=== PATIENT | male | born 1975 | race Caucasian/White ===

== ENCOUNTER 2022-01-17 10:04 | Outpatient (REF) | payer OTHER, SELFPAY ==
[2022-01-17 10:40] LABS: MANUAL DIFF FLAG NO
[2022-01-17 10:45] LABS: Basophils Percent Auto 0.5 % (0-2); Eosinophils Absolute Auto 0.1 X10*3/uL (0.0-0.4); Eosinophils Percent Auto 1.4 % (0-4); Hematocrit 43.7 % (42.0-52.0); Imm Gran Abs Auto 0.06 X10*3/uL (0.00-0.03); Imm Gran Pct Auto 0.7 % (0.0-0.4); Lymphocytes Absolute Auto 2.4 X10*3/uL (1.2-4.9); Lymphocytes Percent Auto 27.6 % (20-40); Mean Corpuscular HGB Conc 34.3 g/dl (31.0-36.0); Mean Corpuscular Hemoglobin 29.4 pg (27.0-33.0); Mean Corpuscular Volume 85.7 fL (80.0-98.0); Mean Platelet Volume 8.5 fL (9.4-12.4); Monocytes Absolute Auto 0.4 X10*3/uL (0.1-1.2); Monocytes Percent Auto 5.1 % (2-11); Neutrophils Absolute Auto 5.6 x10*3/uL (2.0-8.3); Neutrophils Percent Auto 64.7 % (45-73); Platelet Count 255 X10*3/uL (160-400); Red Cell Distribution Width 12.2 % (11.0-16.0); White Blood Count 8.6 X10*3/uL (4.8-10.8)
[2022-01-17 11:23] LABS: Alanine Aminotransferase 40 U/L (0-40); Albumin Level 4.7 g/dL (3.5-5.0); Alkaline Phosphatase 83 U/L (39-117); Anion Gap 13 (12-20); Aspartate Amino Transferase 22 U/L (5-37); Bilirubin Total 0.6 mg/dL (0.0-1.0); Blood Urea Nitrogen 15 mg/dL (9-16); Calcium 10.3 mg/dL (8.4-10.2); Carbon Dioxide 26 mmol/L (22-29); Chloride 103 mmol/L (96-108); Cholesterol 220 mg/dL; Estimated Glomerular Filt Rate > 60; Glucose Fasting 138 mg/dL (60-99); HDL Cholesterol 43 mg/dL; LDL Cholesterol Calculated 149 mg/dl; Potassium 4.2 mmol/L (3.3-5.1); Sodium 138 mmol/L (135-145); Total Protein 7.5 g/dL (6.5-8.0); Triglycerides 143 mg/dL
[2022-01-17 11:27] LABS: Prostate Specific Antigen 3.18 ng/mL (<0.05-4.0)
== END 2022-01-17 10:05 | disposition home or self-care (01) ==
LOC: HO.WFDLDS 10:04
PROVIDERS: Visit Provider Nurse Practitioner Family
DX: Z00.00 Encounter for general adult medical examination without abnormal findings (principal); Z12.5 Encounter for screening for malignant neoplasm of prostate
CPT/HCPCS: 36415; 80053; 80061; 84153; 85025

== ENCOUNTER → 2022-06-28 10:23 | Outpatient (BNVA) | payer OTHER, SELFPAY | PROVIDERS: PCP Nurse Practitioner Family; Visit Provider Urology | DX: R97.20 Elevated prostate specific antigen [PSA] (principal) | CPT/HCPCS: 51798; 99202 ==

== ENCOUNTER 2022-12-30 10:04 | Outpatient (REF) | payer OTHER, SELFPAY ==
[2022-12-30 13:10] LABS: Prostate Specific Antigen 3.36 ng/mL (<0.05-4.0)
== END 2022-12-30 10:05 | disposition home or self-care (01) ==
LOC: HO.WFDLDS 10:04
PROVIDERS: Visit Provider Urology
DX: Z12.5 Encounter for screening for malignant neoplasm of prostate (principal); N40.1 Benign prostatic hyperplasia with lower urinary tract symptoms
CPT/HCPCS: 36415; 84153

== ENCOUNTER 2023-01-06 10:01 | Outpatient (AMB) | payer OTHER, SELFPAY ==
--- NOTE | 2023-01-06 10:02 | MHC.OFFVIS ---
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 Hatfield. He is being followed up on today via video telehealth for his history of lower urinary tract symptoms and elevated PSA. When asked he reports to be doing and feeling well. He discusses noting significant improvement in lower urinary tract symptoms on 5 mg of Cialis and Flomax daily. He reports feeling medications are extremely effective for him when he takes them at HS. He reports to be happy with current voiding parameters on 0.4 mg of Flomax and 5 mg of Cialis daily. Recent PSA results reviewed with the patient today. PSAs are as follows: 02/02--3.2 12/04--3.4. He discusses moving here from [place]. He reports having followed up with a urologist previously in [place]. During last office visit with Dr. Bran approximately 6 months ago VICENTA noted to be soft prostate right side question of inflammation. Discussed at length potential causes for elevated PSA. Discussed obtaining retroperitoneal ultrasound for further assessment evaluation as well as redraw of PSA. He otherwise denies any bothersome urinary issues or concerns at this time. 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 Cognitive needs: No Hearing needs: No Vision needs: No Review of Systems Const All systems reviewed & are unremarkable except as noted in HPI and below Physical Exam Const General: cooperative, healthy appearing, comfortable, no acute distress, well developed, alert and awake Orientation/consciousness: patient oriented x3 Resp Effort & Inspection: normal respiratory effort and able to speak in complete sentences Neuro General: patient oriented x3 Psych Appearance: grossly normal and well kempt Mental Status: mental status grossly normal Speech and movement: Normal speech and movement present and Clear speech present Affect: normal affect Attitude: cooperative Thought process: Normal thought process present Thought content: Normal thought content present Insight: Good insight present (Psych) Judgement: Good judgement present (Psych) Assessment & Plan Assessment & Plan (1) Enlarged prostate with lower urinary tract symptoms (LUTS): Code(s): N40.1 - Benign prostatic hyperplasia with lower urinary tract symptoms (2) Elevated PSA: Code(s): R97.20 - Elevated prostate specific antigen [PSA] Plan Recent PSA results reviewed with the patient today. Continue 5 mg of Cialis daily as well as 0.4 mg of tamsulosin as patient reports significant improvement in lower urinary tract symptoms on these medications. Discussed at length potential causes for elevated PSA. Discussed obtaining redraw of PSA with no sex the night before, no caffeine morning of and no heavy lifting 1-2 days prior to lab draw. Will obtain retroperitoneal ultrasound for further assessment evaluation. Patient denies any bothersome urinary issues or concerns at this time. Follow-up in 1-2 months with labs and imaging to be completed prior; or sooner with any issues, concerns, and or questions. Orders: Orders US retroperitoneal comp Today N40.1 - Benign prostatic hyperplasia with lower urinary tract symptoms PSA,Total (Free>4and<10) Today N40.1 - Benign prostatic hyperplasia with lower urinary tract symptoms Patient Instructions: The patient had an opportunity to ask questions regarding the treatment plan. All questions were answered. Physical exam, labs, and imaging were discussed and reviewed in detail. As well as risks, benefits, and discussion of treatment choices. No major barriers to understanding were identified. The patient expressed understanding and agreement with the above treatment plan. The patient was made aware they should contact our office by phone for worsening of their current condition, the appearance of new symptoms, or with any questions or concerns. Compliance is encouraged with any medications and follow up testing that is ordered. It is a privilege to be allowed the opportunity to participate in? your urological care.? Again, if you have any questions or concerns If you have any questions or concerns please do not hesitate to contact me. The office is [phone]. This note is constructed using voice recognition software. While every effort has been made to ensure accuracy packaging assembler errors may have been included. Yours sincerely, PARAS Smith- Telehealth Telehealth Location of provider rendering services: practice address Location of patient: address on file Patient Identification confirmed using: Name, : Yes Telehealth method: video Patient verbally consented to treatment: Yes Patient verbally consented to billing insurance company: Yes Patient informed of any privacy concerns related to visit: Yes Minutes spent on Phone/Video with Pt.: 35 Coding Level of Care Code Est Pt Level 3 (42667) Diagnoses Enlarged prostate with lower urinary tract symptoms (LUTS) N40.1 Elevated PSA R97.20
== END 2023-01-06 11:52 | disposition home or self-care (01) ==
LOC: HO.HUSH 10:01
PROVIDERS: PCP Nurse Practitioner Family; Visit Provider Nurse Practitioner Family
DX: N40.1 Benign prostatic hyperplasia with lower urinary tract symptoms (principal); R97.20 Elevated prostate specific antigen [PSA]
CPT/HCPCS: 99213

== ENCOUNTER → 2023-01-06 10:01 | Outpatient (BNVA) | payer OTHER, SELFPAY | PROVIDERS: PCP Nurse Practitioner Family; Visit Provider Nurse Practitioner Family | DX: R97.20 Elevated prostate specific antigen [PSA] (principal); N40.1 Benign prostatic hyperplasia with lower urinary tract symptoms | CPT/HCPCS: 99212 ==

== ENCOUNTER 2023-01-10 08:08 | Outpatient (REF) | payer OTHER, SELFPAY | END 2023-01-10 08:09 | disposition home or self-care (01) | LOC: HO.WFDLDS 08:08 | PROVIDERS: Visit Provider Nurse Practitioner Family | DX: Z12.5 Encounter for screening for malignant neoplasm of prostate (principal); N40.1 Benign prostatic hyperplasia with lower urinary tract symptoms | CPT/HCPCS: 36415; 84153 ==

== ENCOUNTER 2023-01-23 12:33 | Outpatient (REF) | payer OTHER, SELFPAY ==
--- NOTE | ~2023-01-23 | US_ITS ---
EXAMINATION: US RETROPERITONEAL COMPLETE (RENAL) CLINICAL INFORMATION: Benign prostatic hyperplasia with lower urinary tract symptoms. COMPARISON: None available. TECHNIQUE: Real-time imaging of the kidneys and bladder. Limited visualization due to bowel gas. FINDINGS: RIGHT KIDNEY: 12.1 x 5.3 x 6.7 cm (SAG x AP x TRV). Upper pole 4.8 cm cyst with benign features. There is no indication for followup imaging. No hydronephrosis. No renal calculi. Renal cortical thickness is normal. Limited visualization. LEFT KIDNEY: 11.6 x 5.1 x 6.4 cm (SAG x AP x TRV). 3.1 cm lower pole cyst, 0.6 cm lower pole cyst and 1.0 cm mid pole cyst demonstrates benign features. There is no indication for followup imaging. No hydronephrosis. No renal calculi. Limited visualization. BLADDER: Well distended. Mild diffuse trabeculation of the bladder wall with borderline thickening. Bilateral ureteral jets are demonstrated. Prevoid bladder volume is 215 mL. Postvoid bladder volume is 7.2 mL. ADDITIONAL FINDINGS: Prostate volume 97.1 mL. US/US retroperitoneal comp IMPRESSION: Mild diffuse trabeculation of the bladder wall with borderline thickening. Prostate volume 97.1 mL.
== END 2023-01-23 12:34 | disposition home or self-care (01) ==
LOC: HO.US 12:33
PROVIDERS: PCP Nurse Practitioner Family; Visit Provider Nurse Practitioner Family
DX: N40.1 Benign prostatic hyperplasia with lower urinary tract symptoms (principal)
CPT/HCPCS: 76770

== ENCOUNTER 2023-02-05 10:40 | Outpatient (AMB) | payer OTHER, SELFPAY ==
--- NOTE | 2023-02-05 10:44 | A.OFFPC_ITS ---
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 by: Self / Same As Patient Allergies No Known Allergies Allergy (Verified 02/05/23 11:22) Medication List - Last Reconciled 02/05/23 by Estefania Hatfield CNP tadalafil 5 mg PO DAILY 90 days tamsulosin 0.4 mg PO BEDTIME 90 days Tobacco use date assessed: 02/05/23 Dental Screening Dental Screen Date: 02/05/23 Did you have a dental visit in the last 12 months?: No Did you have a dental problem in the last 6 months where you did not have access to dental care?: No Was dental information given to patient?: Yes HPI HPI Comments History of Present Illness Details 47-year-old male presents for a complete physical exam. He has medical h/o of enlarged prostate, anxiety, and depression. He admits to taking his medications as prescribed. He is followed by [facility] urology. He notes that he has been experiencing PTSD symptoms since he was kidnapped on the streets of [facility] in February 2022, imprisoned for 46 days, and released. He was never extradited to [place] as initially planned. He visited [facility] to meet his mother who was traveling from [place]. 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 He has been seeing a therapist weekly or every other week, depending on his needs. He finds psychotherapy helpful. He is not currently on a psychotropic medication and does not want medication treatment for his PTSD symtpoms at this time. [facility] Medical History (Updated 02/05/23 @ 10:56 by Sammie Joseph MA) No pertinent past medical history Surgical History (Updated 02/05/23 @ 10:56 by Sammie Joseph MA) Hx of appendectomy Family History Mother Hypertension Diabetes No family history of mental disorder Heart disease Father Heart disease No family history of mental disorder COPD (chronic obstructive pulmonary disease) Social History Household Members: Significant Other Housing: House Alcohol intake: former Patient Tobacco Use Status: Never used Tobacco e-Cigarette/Vaping Use: Currently Using service: No Current occupational status: other 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 1. Little interest or pleasure in doing things: more than half the days 2. Feeling down, depressed, or hopeless: several days 3. Trouble falling or staying asleep, or sleeping too much: more than half the days 4. Feeling tired or having little energy: more than half the days 5. Poor appetite or overeating: not at all 6. Feeling bad about yourself - or that you are a failure or have let yourself or your family down: nearly every day 7. Trouble concentrating on things, such as reading the newspaper or watching television: more than half the days 8. Moving or speaking so slowly that other people could have noticed. Or the opposite - being so fidgety or restless that you have been moving around a lot more than usual: not at all 9. Thoughts that you would be better off or of hurting yourself in some way: not at all Total score: 12 Depression Screening Interpretation: Positive Depression Screening Follow-up: Existing condition and In treatment Depression Screening Done: Yes Source: Developed by Drs. Gokul Diaz, Evon Tucker, Duane Wyatt and colleagues, with an educational akilah from [employer]. AUDIT C Alcohol Use Questionnaire (AUDIT-C) 1. How often do you have a drink containing alcohol?: Monthly or less 2. How many drinks containing alcohol do you have on a typical day when you are drinking?: 1 or 2 3. How often do you have six or more drinks on one occasion?: Never Total Score: 1 CARLENE-7 AMB Questionnaire CARLENE-7 Date CARLENE - 7 assessed: 02/05/23 Feeling nervous, anxious, or on edge: 0 = Not at all Not being able to stop or control worryin = Not at all Worrying too much about different things: 2 = More than half the days Trouble relaxin = Not at all Being so restless that it is hard to sit still: 0 = Not at all Becoming easily annoyed or irritable: 1 = Several days Feeling afraid as if something awful might happen: 1 = Several days Total CARLENE-7 score (0-4 normal; 5-9 mild; 10-14 moderate; 15-21 severe): 4 Source: Developed by Drs. Gokul Diaz, Evon Tucker, Duane Wyatt and colleagues, with an educational akilah from [employer]. Review of Systems Const Details: Denies chills, Denies fatigue, Denies fever(s), Denies headache(s) and Denies weakness HEENT Denies change in vision, Denies dizziness, Denies headache(s), Denies hearing loss, Denies nasal congestion, Denies sinus pain, Denies sinus pressure and Denies sore throat Card Denies chest pain, Denies lightheadedness, Denies dyspnea and Denies other (palpitations) Resp Denies cough, Denies dyspnea and Denies wheezing GI Denies abdominal pain, Denies melena, Denies hematochezia, Denies change in bowel habits, Denies dyspepsia and Denies nausea Denies hematuria and Denies dysuria Musc Denies abnormal gait, Denies myalgias, Denies arthralgias, Denies numbness and Denies tingling Skin/Breast Denies rash, Denies unusual bruising and Denies wounds Neuro Denies abnormal gait, Denies dizziness, Denies headache(s), Denies memory loss, Denies numbness, Denies Sensory deficit (Neuro), Denies tingling and Denies weakness Psych Denies anxiety, Denies depression and Denies memory loss Endo Denies cold intolerance, Denies fatigue, Denies heat intolerance, Denies polydipsia and Denies polyuria Karl/Lymph Denies easy bleeding and Denies easy bruising Aller/Immun Denies wheezing Physical exam (Primary Care) Vital Signs: Last Vital Signs Temp 97.6 F 02/05/23 10:45 Pulse 89 02/05/23 10:45 Resp 13 02/05/23 10:45 BP 128/76 02/05/23 10:45 Pulse Ox 98 02/05/23 10:45 Oxygen Delivery Method Room Air 02/05/23 10:45 BMI result Body Mass Index 35.8 Tobacco/Smoking Status: Tobacco use Status Tobacco use date assessed 02/05/23 02/05/23 10:57 Patient Tobacco Use Status Never used Tobacco 02/05/23 10:57 e-Cigarette/Vaping Use Currently Using 02/05/23 10:45 PHQ-9: PHQ-9 Score PHQ-9: Total score 12 02/05/23 11:46 Depression Screening Interpretation: Positive Depression Screening Follow-up: Existing condition and In treatment Const Other: General: no acute distress, well developed, alert and awake Nutritional Appearance: well nourished Orientation/consciousness: patient oriented x3 HENMT Head: Yes normocephalic and Yes atraumatic Ears: hearing grossly normal bilaterally and TM's normal bilaterally General nose exam: Normal external nose present and Normal nares present Mouth: Normal oral and palatal mucosa present and moist mucous membranes Teeth and gingiva: dentition normal Throat: Yes oropharynx normal Eyes Pupils: Equal, round and reactive pupils present and Pupil accommodation reflex normal EOM: EOMs intact bilaterally Neck Neck: Yes normal visual inspection, Yes no lymphadenopathy and Yes trachea midline Thyroid: Thyroid normal Carotids: no bruits Lymphatic: no lymphadenopathy noted Chest Chest palpation & inspection: normal inspection of the chest Resp Effort & Inspection: normal respiratory effort Auscultation: clear to auscultation bilaterally Cardio Rate: regular rate Rhythm: regular rhythm Heart sounds: S1 normal heart sound present, S2 normal heart sound present, no gallops, no murmurs and no rubs Bruits: no abdominal aortic bruits and no carotid bruits GI Palpation (GI): No Abdominal aortic bruit present, Soft to palpation, nontender, No hepatosplenomegaly present and No Rebound tenderness present Auscultation: normal bowel sounds General: Yes no CVA tenderness Back/Spine/Pelvis Back: no CVA tenderness Cervical Spine: cervical ROM normal and No Cervical spine tenderness Thoracic/Lumbar Spine: thoraco-lumbar ROM normal, No pain with thoraco-lumbar ROM, No thoracic spinal tenderness and No lumbar spinal tenderness Skin General: warm and dry. Normal skin color. Normal skin turgor Lesions: no lesions Rashes: no rashes Trauma: no lacerations or abrasions Wounds: no wounds Nails: normal Neuro General: patient oriented x3, gait normal and CN's II-XI intact bilaterally Cranial nerves: Yes Equal, round and reactive pupils present Cognition (Neuro): normal cognition Gait exam (Neuro): Normal gait present Motor exam (neuro): 5/5 motor strength present throughout Sensory Exam: No Sensory deficit (Neuro) Deep tendon reflexes (DTR's): Right patellar reflex intensity grade: 2+ and Left patellar reflex intensity grade: 2+ Extrem General: Yes normal to inspection, No edema and No calf tenderness Psych Appearance: grossly normal Affect: normal affect Attitude: cooperative Thought process: Normal thought process present Assessment and Plan Assessment & Plan (1) Normal physical examination, routine: Code(s): Z00.00 - Encounter for general adult medical examination without abnormal findings Plan: No significant physical restrictions or limitations noted Routine fasting labs ordered. Advised to get blood work done and schedule a telehealth visit for labs review in 2-3 Continue with current treatment regimen Continue follow-up with urology as planned Follow-up with symptoms or concerns Verbalized understanding and agreed with treatment plan. (2) Anxiety: Code(s): F41.9 - Anxiety disorder, unspecified Plan: CARLENE-7 score is normal. PHQ-9 reveals moderate depression Declines medication treatment at this time Continue with therapy as planned Routine exercise encouraged May contact his PCP if he changes mind on medication treatment Follow-up with worsening or new symptoms Verbalized understanding and agreed with the treatment plan. (3) PTSD (post-traumatic stress disorder): Code(s): F43.10 - Post-traumatic stress disorder, unspecified Plan: As above (4) Impacted cerumen of both ears: Code(s): H61.23 - Impacted cerumen, bilateral Plan: Significant amount of cerumen noted both ear canal occluding the TMs No hearing impairment He noted that he never used to Debrox a was ordered. Advised to use Debrox as prescribed May return for cerumen removal if experiencing ear pain or impaired hearing Verbalized understanding and agreed with treatment plan Orders: Orders Complete Blood Count Auto Diff Today Z00.00 - Encounter for general adult medical examination without abnormal findings Comprehensive Morse. Panel Fast Today Z00.00 - Encounter for general adult medical examination without abnormal findings Lipid Panel Today Z00.00 - Encounter for general adult medical examination without abnormal findings TSH reflex Free T4 Today Z00.00 - Encounter for general adult medical examination without abnormal findings Coding Level of Care Code Est Pt Prev Care 40-64y(88173) Diagnoses Normal physical examination, routine Z00.00 Anxiety F41.9 PTSD (post-traumatic stress disorder) F43.10 Impacted cerumen of both ears H61.23
[2023-02-05 10:45] VITALS: BP 128/76; PULSE 89; RESP 13; TEMP 36.4; O2SAT 98; BMI 35.8
== END 2023-02-05 11:41 | disposition home or self-care (01) ==
PROVIDERS: PCP Nurse Practitioner Family; Visit Provider Nurse Practitioner Family
DX: Z00.00 Encounter for general adult medical examination without abnormal findings (principal); F41.9 Anxiety disorder, unspecified; F43.10 Post-traumatic stress disorder, unspecified; H61.23 Impacted cerumen, bilateral
CPT/HCPCS: 99396

== ENCOUNTER 2023-02-05 11:42 | Outpatient (REF) | payer OTHER, SELFPAY ==
[2023-02-05 14:56] LABS: MANUAL DIFF FLAG NO
[2023-02-05 15:06] LABS: Basophils Percent Auto 0.5 % (0-2); Eosinophils Absolute Auto 0.1 X10*3/uL (0.0-0.4); Eosinophils Percent Auto 1.3 % (0-4); Hematocrit 45.4 % (42.0-52.0); Hemoglobin 15.2 g/dl (14.0-18.0); Imm Gran Abs Auto 0.04 X10*3/uL (0.00-0.03); Imm Gran Pct Auto 0.5 % (0.0-0.4); Lymphocytes Absolute Auto 2.3 X10*3/uL (1.2-4.9); Lymphocytes Percent Auto 27.9 % (20-40); Mean Corpuscular HGB Conc 33.5 g/dl (31.0-36.0); Mean Corpuscular Hemoglobin 29.5 pg (27.0-33.0); Mean Corpuscular Volume 88.2 fL (80.0-98.0); Mean Platelet Volume 9.2 fL (9.4-12.4); Monocytes Absolute Auto 0.4 X10*3/uL (0.1-1.2); Neutrophils Absolute Auto 5.3 x10*3/uL (2.0-8.3); Neutrophils Percent Auto 64.8 % (45-73); Platelet Count 262 X10*3/uL (160-400); Red Blood Count 5.15 X10*6/uL (4.60-5.80); Red Cell Distribution Width 12.2 % (11.0-16.0); White Blood Count 8.2 X10*3/uL (4.8-10.8)
[2023-02-05 15:33] LABS: Alanine Aminotransferase 26 U/L (0-40); Albumin Level 4.6 g/dL (3.5-5.0); Alkaline Phosphatase 74 U/L (39-117); Anion Gap 14 (12-20); Aspartate Amino Transferase 19 U/L (5-37); Bilirubin Total 0.3 mg/dL (0.0-1.0); Blood Urea Nitrogen 15 mg/dL (9-16); Calcium 9.8 mg/dL (8.4-10.2); Carbon Dioxide 25 mmol/L (22-29); Chloride 106 mmol/L (96-108); Cholesterol 190 mg/dL (<200); Estimated Glomerular Filt Rate > 60; Glucose Fasting 117 mg/dL (60-99); HDL Cholesterol 40 mg/dL (>40); LDL Cholesterol Calculated 134 mg/dL (<100); Potassium 4.2 mmol/L (3.3-5.1); Sodium 141 mmol/L (135-145); Total Protein 7.6 g/dL (6.5-8.0); Triglycerides 80 mg/dL (<150)
[2023-02-05 15:52] LABS: TSH reflex Free T4 0.67 uIU/mL (0.32-4.0)
== END 2023-02-05 11:43 | disposition home or self-care (01) ==
LOC: HO.WFDLDS 11:42
PROVIDERS: Visit Provider Nurse Practitioner Family
DX: Z00.00 Encounter for general adult medical examination without abnormal findings (principal)
CPT/HCPCS: 36415; 80053; 80061; 84443; 85025

== ENCOUNTER 2023-02-20 16:10 | Outpatient (AMB) | payer OTHER, SELFPAY ==
--- NOTE | 2023-02-20 15:59 | A.OFFPC_ITS ---
Intake Visit Reasons: f/u labs review Intake Note: Patient is ready for the telehealth appointment, is okay with an earlier call. Allergies No Known Allergies Allergy (Verified 02/05/23 11:22) Tobacco use date assessed: 02/05/23 HPI HPI Comments History of Present Illness Details This is a telephonic telehealth visit for review of recent blood work. He offers no complaints and denies acute symptoms. He notes that he has been seen a psychologist weekly or biweekly for anxiety, depression, and PTSD and does not need medication treatment at this time. [facility] Medical History (Updated 02/20/23 @ 16:18 by Estefania Hatfield CNP) No pertinent past medical history Surgical History (Updated 02/05/23 @ 10:56 by Sammie Joseph MA) Hx of appendectomy Family History Mother Hypertension Diabetes No family history of mental disorder Heart disease Father Heart disease No family history of mental disorder COPD (chronic obstructive pulmonary disease) Social History Household Members: Significant Other Housing: House Alcohol intake: former Patient Tobacco Use Status: Never used Tobacco e-Cigarette/Vaping Use: Currently Using service: No Current occupational status: other 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 Gokul Diaz, Evon Tucker, Duane Wyatt and colleagues, with an educational akilah from [employer]. Review of Systems Const Details: Const Denies chills, Denies fatigue, Denies fever(s), Denies headache(s) and Denies weakness ENT Denies dizziness and Denies headache(s) Card Denies chest pain, Denies lightheadedness, Denies dyspnea and Denies other (Palpitations) Resp Denies cough, Denies dyspnea, Denies wheezing and Denies other ( shortness of breath) GI Denies abdominal pain, Denies melena, Denies hematochezia, Denies change in bowel habits, Denies dyspepsia and Denies nausea Denies hematuria and Denies dysuria Musc Denies abnormal gait, Denies myalgias, Denies arthralgias, Denies numbness and Denies tingling Skin/Breast Denies rash, Denies unusual bruising and Denies wounds Neuro Denies abnormal gait, Denies dizziness, Denies headache(s), Denies memory loss, Denies numbness, Denies Sensory deficit (Neuro), Denies tingling and Denies wea kness Psych Denies anxiety, Denies depression, Denies memory loss Endo Denies cold intolerance, Denies fatigue, Denies heat intolerance, Denies polydi psia and Denies polyuria Aller/Immun Denies wheezing Physical exam (Primary Care) Tobacco/Smoking Status: Tobacco use Status Tobacco use date assessed 02/05/23 02/20/23 16:01 Patient Tobacco Use Status Never used Tobacco 02/20/23 16:01 e-Cigarette/Vaping Use Currently Using 02/20/23 16:01 Const Other: Telephonic telehealth visit. No physical exam Telehealth Telehealth Location of provider rendering services: practice address Location of patient: address on file Patient Identification confirmed using: Name, : Yes Telehealth method: voice only Patient verbally consented to treatment: Yes Patient verbally consented to billing insurance company: Yes Patient informed of any privacy concerns related to visit: Yes Assessment and Plan Assessment & Plan (1) Elevated LDL cholesterol level: Code(s): E78.00 - Pure hypercholesterolemia, unspecified Plan: Recent lab results reviewed with the patient His lipid levels have improved from a year ago. However, recent LDL level is slightly elevated, 134, and HDL level is slightly low, 40 Advised to limit foods high in saturated fat and avoid foods high trans fat Routine exercise encouraged Will continue to monitor Advised to schedule his extended physical exam a year from the last one Continue follow-up with urology as planned Return with symptoms or concerns Verbalized understanding and agreed with the plan. (2) Elevated fasting glucose: Code(s): R73.01 - Impaired fasting glucose Plan: Recent fasting glucose is elevated, 117. He had elevated fasting blood glucose of 138 a year ago Will check A1c and make changes to his care plan if warranted Healthy diet and routine exercise encouraged Verbalized understanding and agreed with treatment plan. Orders: Orders Hemoglobin A1c Today R73.01 - Impaired fasting glucose Coding Level of Care Code Tele Est Pt Level 2 (39957) Diagnoses Elevated LDL cholesterol level E78.00 Elevated fasting glucose R73.01 Time Spent (min) 15
== END 2023-02-20 16:45 ==
PROVIDERS: PCP Nurse Practitioner Family; Visit Provider Nurse Practitioner Family
DX: E78.00 Pure hypercholesterolemia, unspecified (principal); R73.01 Impaired fasting glucose
CPT/HCPCS: 99212

== ENCOUNTER 2023-03-24 10:13 | Outpatient (REF) | payer OTHER, SELFPAY ==
[2023-03-24 11:55] LABS: Estimated Average Glucose 140 mg/dL; Hemoglobin A1c % 6.5 % (<6.0)
== END 2023-03-24 10:14 | disposition home or self-care (01) ==
LOC: HO.WFDLDS 10:13
PROVIDERS: Visit Provider Nurse Practitioner Family
DX: R73.01 Impaired fasting glucose (principal)
CPT/HCPCS: 36415; 83036

== ENCOUNTER 2023-03-28 10:01 | Outpatient (AMB) | payer OTHER, SELFPAY ==
[2023-03-28 10:04] VITALS: BP 126/70; PULSE 80; RESP 13; TEMP 36.4; O2SAT 98; BMI 36.8
--- NOTE | 2023-03-28 10:04 | MHC.PC.OV ---
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: No Accompanied by: Self / Same As Patient Allergies No Known Allergies Allergy (Verified 03/28/23 10:17) Medication List - Last Reconciled 03/28/23 by Estefania Hatfield CNP tadalafil 5 mg PO DAILY 90 days tamsulosin 0.4 mg PO BEDTIME 90 days Tobacco use date assessed: 02/05/23 Dental Screening Dental Screen Date: 03/28/23 Did you have a dental visit in the last 12 months?: No Did you have a dental problem in the last 6 months where you did not have access to dental care?: No Was dental information given to patient?: Patient has dentist HPI HPI Comments History of Present Illness Details 47-year-old male presents for review of recent A1c result He has elevated fasting glucose readings. His A1c was 6.5% on 03/24/2023 He notes that he feels better overall. He notes that he continues to see his therapist on bi weekly bases He offers no complaints and denies acute symptoms at this time He gained 7 lb since his last office visit in January. He notes that he recently started making healthy dietary changes. 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 Gokul Diaz, Evon Tucker, Duane Wyatt and colleagues, with an educational akilah from [employer]. Review of Systems Const Details: Const Denies chills, Denies fatigue, Denies fever(s), Denies headache(s) and Denies weakness ENT Denies dizziness and Denies headache(s) Card Denies chest pain, Denies lightheadedness, Denies dyspnea and Denies other (Palpitations) Resp Denies cough, Denies dyspnea, Denies wheezing and Denies other ( shortness of breath) GI Denies abdominal pain, Denies melena, Denies hematochezia, Denies change in bowel habits, Denies dyspepsia and Denies nausea Denies hematuria and Denies dysuria Musc Denies abnormal gait, Denies myalgias, Denies arthralgias, Denies numbness and Denies tingling Skin/Breast Denies rash, Denies unusual bruising and Denies wounds Neuro Denies abnormal gait, Denies dizziness, Denies headache(s), Denies memory loss, Denies numbness, Denies Sensory deficit (Neuro), Denies tingling and Denies weakness Psych Denies anxiety, Denies depression, Denies memory loss Endo Denies cold intolerance, Denies fatigue, Denies heat intolerance, Denies polydipsia and Denies polyuria Aller/Immun Denies wheezing Physical exam (Primary Care) Vital Signs: Last Vital Signs Temp 97.5 F 03/28/23 10:04 Pulse 80 03/28/23 10:04 Resp 13 03/28/23 10:04 BP 126/70 03/28/23 10:04 Pulse Ox 98 03/28/23 10:04 Oxygen Delivery Method Room Air 03/28/23 10:04 BMI result Body Mass Index 36.8 Tobacco/Smoking Status: Tobacco use Status Tobacco use date assessed 02/05/23 03/28/23 10:09 Patient Tobacco Use Status Never used Tobacco 03/28/23 10:09 e-Cigarette/Vaping Use Currently Using 03/28/23 10:09 Const Other: General: no acute distress and well developed Nutritional Appearance: well nourished Orientation/consciousness: patient oriented x3 HENMT Head: Yes normocephalic and Yes atraumatic Eyes General: appearance normal, both eyes and all related structures Pupils: Equal, round and reactive pupils present EOM: EOMs intact bilaterally Resp Effort & Inspection: normal respiratory effort Auscultation: clear to auscultation bilaterally Cardio Rate: regular rate Rhythm: regular rhythm Heart sounds: S1 normal heart sound present, S2 normal heart sound present, no gallops, no murmurs and no rubs GI Palpation (GI): No Abdominal aortic bruit present, Soft to palpation, nontender, No hepatosplenomegaly present and No Rebound tenderness present Auscultation: normal bowel sounds General: Yes no CVA tenderness Back/Spine/Pelvis Back: no CVA tenderness Cervical Spine: cervical ROM normal and No Cervical spine tenderness Thoracic/Lumbar Spine: thoraco-lumbar ROM normal, No pain with thoraco-lumbar ROM, No thoracic spinal tenderness and No lumbar spinal tenderness Extrem General: Yes normal to inspection, No edema and No calf tenderness Skin General: warm and dry. Normal skin color. Normal skin turgor Neuro General: patient oriented x3, gait normal and no focal neuro deficit Cranial nerves: Yes Equal, round and reactive pupils present Cognition (Neuro): normal cognition Gait exam (Neuro): Normal gait present Sensory Exam: No Sensory deficit (Neuro) Psych Appearance: grossly normal Affect: normal affect Attitude: cooperative Thought process: Normal thought process present Assessment and Plan Assessment & Plan (1) Type 2 diabetes mellitus: Code(s): E11.9 - Type 2 diabetes mellitus without complications Plan: Recent A1c 6.5% and indicates diabetes Metformin ordered. Take as prescribed ADA diet and routine exercise encouraged. He notes that he will be exercising more now that he does not feel depressed Referred to the nurse navigator for Diabetes Education Referred to sheet sewer/dietitian Will check lipid panel level in 3 months. Advised to get fasting blood work done before his next visit Will also check urine microalbumin/creatinine ratio Follow-up in 3 months or return sooner with worsening or new symptoms Verbalized understanding and agreed with treatment plan (2) Obesity (BMI 30-39.9): Code(s): E66.9 - Obesity, unspecified Plan: He gained 7 lb since his last office visit in January Instructed on the importance of with management to control diabetes He admits to making healthy lifestyle changes and plans on exercising more now that he no longer feels depressed Healthy diet and routine exercise encouraged Referred to sheet sewer/dietitian Follow-up with symptoms or concerns Verbalized understanding and agreed with treatment Orders: Orders Lipid Panel 3 Months E11.9 - Type 2 diabetes mellitus without complications Microalbumin, Random (w Creat) 3 Months E11.9 - Type 2 diabetes mellitus without complications Referrals Nutrition/Dietitian Referral E11.9 - Type 2 diabetes mellitus without complications, E66.9 - Obesity, unspecified Nurse Navigator Referral E11.9 - Type 2 diabetes mellitus without complications, E66.9 - Obesity, unspecified Medications: New metformin 500 mg PO DAILY 30 tabs 3RF 30 days Coding Level of Care Code Est Pt Level 3 (60285) Diagnoses Type 2 diabetes mellitus E11.9 Obesity (BMI 30-39.9) E66.9
== END 2023-03-28 10:31 | disposition home or self-care (01) ==
PROVIDERS: PCP Nurse Practitioner Family; Visit Provider Nurse Practitioner Family
DX: E11.9 Type 2 diabetes mellitus without complications (principal); E66.9 Obesity, unspecified; Z68.36 Body mass index [BMI] 36.0-36.9, adult
CPT/HCPCS: 99213

== ENCOUNTER 2023-05-06 13:21 | Outpatient (AMB) | payer OTHER, SELFPAY ==
[2023-05-06 13:27] VITALS: BMI 36.5
--- NOTE | 2023-05-06 13:27 | A.OFFVIS_ITS ---
Intake VS Expanded 05/06/23 13:27 05/19/23 13:36 Height 5 ft 10 in 5 ft 10 in Weight 254 lb 6.615 oz 254 lb BMI 36.5 36.4 Intake Visit Reasons: DM2, Obesity/CONFIRMED Allergies No Known Allergies Allergy (Verified 03/28/23 10:17) HPI Nutrition Presentation Details Pt presents for MNT for T2DM, newly diagnosed Pt was referred by Kamilla Adkins not monitoring blood glucose Pt reports following a plant based diet for the most part and including seafood. B: hot cereals/grains made with water or whole grain bread with peanut butter , chutney L: lentils/rice, water or fruit juice D: rice/beans, bread snack: pastries/nuts, fruits ETOH: occ Smokin-1 physical activity: daily life activities TFU-Cdcstnb-Ub.Jeor Equation Height 5 ft 10 in Weight 254 lb Resting Metabolic Rate 2035.98 Calculated Activity Level Mild Activity Calories Needed to Maintain Weight 2799.47 Diagnosis Nutrition problem #1 excessive energy intake As related to (etiology) #1 diagnosis As evidenced by (sign/symptom) #1 knowledge deficit of diet Most Recent Diabetes Results: Cholesterol 190 mg/dL (<200) 02/05/23 HDL Cholesterol 40 mg/dL (>40) L 02/05/23 Triglycerides 80 mg/dL (<150) 02/05/23 Creatinine 0.74 mg/dL (0.5-1.4) 02/05/23 Blood Urea Nitrogen 15 mg/dL (9-16) 02/05/23 Sodium 141 mmol/L (135-145) 02/05/23 Potassium 4.2 mmol/L (3.3-5.1) 02/05/23 Chloride 106 mmol/L (96-108) 02/05/23 Carbon Dioxide 25 mmol/L (22-29) 02/05/23 Calcium 9.8 mg/dL (8.4-10.2) 02/05/23 AST 19 U/L (5-37) 02/05/23 ALT 26 U/L (0-40) 02/05/23 Total Protein 7.6 g/dL (6.5-8.0) 02/05/23 Albumin 4.6 g/dL (3.5-5.0) 02/05/23 [facility] Medical History No pertinent past medical history Surgical History Hx of appendectomy Family History Mother Hypertension Diabetes No family history of mental disorder Heart disease Father Heart disease No family history of mental disorder COPD (chronic obstructive pulmonary disease) Social History Household Members: Significant Other Housing: Apartment Alcohol intake: former Patient Tobacco Use Status: Never used Tobacco e-Cigarette/Vaping Use: Currently Using service: Yes Current occupational status: other 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 Cognitive needs: No Hearing needs: No Vision needs: No Assessment & Plan Assessment & Plan (1) Type 2 diabetes mellitus: Code(s): E11.9 - Type 2 diabetes mellitus without complications Plan: Wt: 115 Kg ( ) Est kcal needs as per MSJ: 2800 (40% carb, 30% protein/fat) Est fluid needs as per 25-30 ml/d: 3500 Est prot per day as per 1 g/kg bw: 115 Recommend fiber intake : 8-10 g per day and gradually increase to 25-28 g per day for women and 35-38 g for men or as tolerated Recommend sodium intake per day : less than 2000 mg Educated patient on: ( R = reviewed V = verbalizes understanding N/R = needs review N/A = not applicable * Food sources of carbohydrate, adequate serving sizes and its role in various health conditions: R * Differences between complex carbohydrates a simple carbohydrates, role of fiber in diet: R * Lean protein sources of foods: R * Differences between types of fats and role in diet (mono on saturated fat fatty acids, saturated fatty acids, trans fats): N/R * Food sources of sodium in salt and healthy modifications for heart health in kidney health: NR * Vitamins and minerals: N/R * Healthy plate method concept: R * Physical activity: Benefits a precaution: R * Hypoglycemia protocol (rule of 15): N/R * Dietary prevention of Hyperglycemia: R Patient Instructions: Work on reducing sugars from diet Reduce total carb to less than 90 g at meal time Keep physically active see meal ideas as reference Coding Level of Care Code Nutr Indiv Intake (08178) Diagnoses Type 2 diabetes mellitus E11.9 Time Spent (min) 30
[2023-05-19 13:36] VITALS: BMI 36.4
== END 2023-05-06 14:06 | disposition home or self-care (01) ==
PROVIDERS: PCP Nurse Practitioner Family; Visit Provider Dietitian, Registered
DX: E11.9 Type 2 diabetes mellitus without complications (principal)

== ENCOUNTER → 2023-05-06 13:21 | Outpatient (BNVA) | payer OTHER, SELFPAY | PROVIDERS: PCP Nurse Practitioner Family; Visit Provider Dietitian, Registered | DX: E11.9 Type 2 diabetes mellitus without complications (principal); E66.9 Obesity, unspecified; Z68.36 Body mass index [BMI] 36.0-36.9, adult; Z71.3 Dietary counseling and surveillance | CPT/HCPCS: 97802 ==

== ENCOUNTER 2023-06-17 13:00 | Outpatient (AMB) | payer OTHER, SELFPAY ==
[2023-06-17 13:05] VITALS: BMI 36.8
--- NOTE | 2023-06-17 13:05 | A.OFFVIS_ITS ---
Intake VS Expanded 06/17/23 13:05 Height 5 ft 10 in Weight 256 lb 9.889 oz BMI 36.8 Intake Visit Reasons: T2DM/CONFIRMED Allergies No Known Allergies Allergy (Verified 03/28/23 10:17) HPI Nutrition Presentation Details Pt presents for MNT follow-up for T2 DM Patient reports keeping physically active at least twice a week: Going for 45 minutes walks He reports trying to choose protein and working on reducing amount of carbohydrates May have days with dietary indiscretions or perhaps eating due to anxiety or stress Most Recent Diabetes Results: Cholesterol 190 mg/dL (<200) 02/05/23 HDL Cholesterol 40 mg/dL (>40) L 02/05/23 Triglycerides 80 mg/dL (<150) 02/05/23 Creatinine 0.74 mg/dL (0.5-1.4) 02/05/23 Blood Urea Nitrogen 15 mg/dL (9-16) 02/05/23 Sodium 141 mmol/L (135-145) 02/05/23 Potassium 4.2 mmol/L (3.3-5.1) 02/05/23 Chloride 106 mmol/L (96-108) 02/05/23 Carbon Dioxide 25 mmol/L (22-29) 02/05/23 Calcium 9.8 mg/dL (8.4-10.2) 02/05/23 AST 19 U/L (5-37) 02/05/23 ALT 26 U/L (0-40) 02/05/23 Total Protein 7.6 g/dL (6.5-8.0) 02/05/23 Albumin 4.6 g/dL (3.5-5.0) 02/05/23 [facility] Medical History No pertinent past medical history Surgical History Hx of appendectomy Family History Mother Hypertension Diabetes No family history of mental disorder Heart disease Father Heart disease No family history of mental disorder COPD (chronic obstructive pulmonary disease) Social History Household Members: Significant Other Housing: Apartment Alcohol intake: former Patient Tobacco Use Status: Never used Tobacco e-Cigarette/Vaping Use: Currently Using service: Yes Current occupational status: other 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 Cognitive needs: No Hearing needs: No Vision needs: No Assessment & Plan Assessment & Plan (1) Type 2 diabetes mellitus: Code(s): E11.9 - Type 2 diabetes mellitus without complications Plan: Wt: 116 Kg ( June 2023 ) Est kcal needs as per MSJ: 2800 (40% carb, 30% protein/fat) Est fluid needs as per 25-30 ml/d: 3500 Est prot per day as per 1 g/kg bw: 115 Recommend fiber intake : 8-10 g per day and gradually increase to 25-28 g per day for women and 35-38 g for men or as tolerated Recommend sodium intake per day : less than 2000 mg Educated patient on: ( R = reviewed V = verbalizes understanding N/R = needs review N/A = not applicable * Food sources of carbohydrate, adequate serving sizes and its role in various health conditions: R * Differences between complex carbohydrates a simple carbohydrates, role of fiber in diet: R * Lean protein sources of foods: R * Differences between types of fats and role in diet (mono on saturated fat fatt y acids, saturated fatty acids, trans fats): R * Food sources of sodium in salt and healthy modifications for heart health in kidney health: NR * Vitamins and minerals: N/R * Healthy plate method concept: R * Physical activity: Benefits a precaution: R * Hypoglycemia protocol (rule of 15): N/R * Dietary prevention of Hyperglycemia: R Patient Instructions: Keep an eye on total amount of carbohydrates at mealtime, reduce total carb to less than 80 g at mealtime choosing complex carbohydrates. Keep physically active even if it is 10 minutes 3 times a day, marching in place Keep hydrated by having water with meals, no sugar containing beverages Work on weight loss 5 lb less in 2 months Coding Level of Care Code Nutr Indiv Subseq (00594) Diagnoses Type 2 diabetes mellitus E11.9 Time Spent (min) 30
== END 2023-06-17 13:33 | disposition home or self-care (01) ==
PROVIDERS: PCP Nurse Practitioner Family; Visit Provider Dietitian, Registered
DX: E11.9 Type 2 diabetes mellitus without complications (principal)

== ENCOUNTER → 2023-06-17 13:00 | Outpatient (BNVA) | payer OTHER, SELFPAY | PROVIDERS: PCP Nurse Practitioner Family; Visit Provider Dietitian, Registered | DX: E11.9 Type 2 diabetes mellitus without complications (principal) | CPT/HCPCS: 97803 ==

== ENCOUNTER 2023-07-15 11:19 | Outpatient (AMB) | payer OTHER, SELFPAY ==
[2023-07-15 11:22] VITALS: BP 124/60; PULSE 87; RESP 14; TEMP 36.6; O2SAT 99; BMI 37.5
--- NOTE | 2023-07-15 11:22 | A.OFFPC_ITS ---
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 G Required: No Accompanied by: Self / Same As Patient Allergies No Known Allergies Allergy (Verified 07/15/23 11:55) Medication List - Last Reconciled 07/15/23 by Estefania Hatfield CNP metformin 500 mg PO DAILY 30 days tadalafil 5 mg PO DAILY 90 days tamsulosin 0.4 mg PO BEDTIME 90 days Tobacco use date assessed: 07/15/23 Dental Screening Dental Screen Date: 07/15/23 Did you have a dental visit in the last 12 months?: No Did you have a dental problem in the last 6 months where you did not have access to dental care?: No Was dental information given to patient?: Patient has dentist HPI HPI Comments History of Present Illness Details 48-year-old male presents for diabetes f ollow-up He admits to taking his medication as prescribed without adverse reactions He notes that he has been making healthy lifestyle changes, including diet and walking He offers no complaints and denies acute symptoms at this time He did not PFSH Medical History No pertinent past medical history Surgical History Hx of appendectomy Family History Mother Hypertension Diabetes No family history of mental disorder Heart disease Father Heart disease No family history of mental disorder COPD (chronic obstructive pulmonary disease) Social History Household Members: Significant Other Housing: Apartment Alcohol intake: former Patient Tobacco Use Status: Never used Tobacco e-Cigarette/Vaping Use: Currently Using service: Yes Current occupational status: other 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 Gokul Diaz, Evon Tucker, Duane Wyatt and colleagues, with an educational akilah from [employer]. Review of Systems Const Details: Const Denies chills, Denies fatigue, Denies fever(s), Denies headache(s) and Denies weakness ENT Denies dizziness and Denies headache(s) Card Denies chest pain, Denies lightheadedness, Denies dyspnea and Denies other (Palpitations) Resp Denies cough, Denies dyspnea, Denies wheezing and Denies other ( shortness of breath) GI Denies abdominal pain, Denies melena, Denies hematochezia, Denies change in bowel habits, Denies dyspepsia and Denies nausea Denies hematuria and Denies dysuria Musc Denies abnormal gait, Denies myalgias, Denies arthralgias, Denies numbness and Denies tingling Skin/Breast Denies rash, Denies unusual bruising and Denies wounds Neuro Denies abnormal gait, Denies dizziness, Denies headache(s), Denies memory loss, Denies numbness, Denies Sensory deficit (Neuro), Denies tingling and Denies weakness Psych Denies anxiety, Denies depression, Denies memory loss Endo Denies cold intolerance, Denies fatigue, Denies heat intolerance, Denies polydipsia and Denies polyuria Aller/Immun Denies wheezing Physical exam (Primary Care) Vital Signs: Last Vital Signs Temp 97.8 F 07/15/23 11:22 Pulse 87 07/15/23 11:22 Resp 14 07/15/23 11:22 BP 124/60 07/15/23 11:22 Pulse Ox 99 07/15/23 11:22 Oxygen Delivery Method Room Air 07/15/23 11:22 BMI result Body Mass Index 37.5 Tobacco/Smoking Status: Tobacco use Status Tobacco use date assessed 07/15/23 07/15/23 11:34 Patient Tobacco Use Status Never used Tobacco 07/15/23 11:23 e-Cigarette/Vaping Use Currently Using 07/15/23 11:23 Const Other: General: no acute distress and well developed Nutritional Appearance: well nourished Orientation/consciousness: patient oriented x3 HENMT Head: Yes normocephalic and Yes atraumatic Eyes General: appearance normal, both eyes and all related structures Pupils: Equal, round and reactive pupils present EOM: EOMs intact bilaterally Resp Effort & Inspection: normal respiratory effort Auscultation: clear to auscultation bilaterally Cardio Rate: regular rate Rhythm: regular rhythm Heart sounds: S1 normal heart sound present, S2 normal heart sound present, no gallops, no murmurs and no rubs GI Palpation (GI): No Abdominal aortic bruit present, Soft to palpation, nontender, No hepatosplenomegaly present and No Rebound tenderness present Auscultation: normal bowel sounds General: Yes no CVA tenderness Back/Spine/Pelvis Back: no CVA tenderness Cervical Spine: cervical ROM normal and No Cervical spine tenderness Thoracic/Lumbar Spine: thoraco-lumbar ROM normal, No pain with thoraco-lumbar ROM, No thoracic spinal tenderness and No lumbar spinal tenderness Extrem General: Yes normal to inspection, No edema and No calf tenderness Skin General: warm and dry. Normal skin color. Normal skin turgor Neuro General: patient oriented x3, gait normal and no focal neuro deficit Cranial nerves: Yes Equal, round and reactive pupils present Cognition (Neuro): normal cognition Gait exam (Neuro): Normal gait present Sensory Exam: No Sensory deficit (Neuro) Psych Appearance: grossly normal Affect: normal affect Attitude: cooperative Thought process: Normal thought process present Results AMB Hemoglobin A1c AMB Hemoglobin A1c 7 % Last Edit by CHERYL Hinson on 07/15/23 11:51 Assessment and Plan Assessment & Plan (1) Type 2 diabetes mellitus: Code(s): E11.9 - Type 2 diabetes mellitus without complications Plan: A1c today is 7.0%, slightly above goal of less than 7.0%. Previous A1c was 6.5% Will increase metformin to 500 mg twice daily. Advised to take as prescribed ADA diet and routine exercise encouraged Encouraged to get fasting labs done before his next visit Follow-up in 3 months or return sooner with symptoms or concerns Verbalized understanding and agreed with the treatment plan Orders: Orders AMB Hemoglobin A1c Today E11.9 - Type 2 diabetes mellitus without complications Medications: Changed From metformin 500 mg PO DAILY 30 days 30 tabs 3RF To metformin 500 mg PO BID 30 days 60 tabs 3RF Coding Level of Care Code Est Pt Level 4 (87255) Diagnoses Type 2 diabetes mellitus E11.9
== END 2023-07-15 11:57 | disposition home or self-care (01) ==
PROVIDERS: PCP Nurse Practitioner Family; Visit Provider Nurse Practitioner Family
DX: E11.9 Type 2 diabetes mellitus without complications (principal)
CPT/HCPCS: 83036; 99214

== ENCOUNTER 2023-07-16 14:51 | Outpatient (AMB) | payer OTHER, SELFPAY ==
--- NOTE | 2023-07-16 15:01 | A.OFFVIS_ITS ---
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 He is a patient of Dr. Hatfield. He is seen for the following urologic conditions - elevated PSA - lower urinary tract symptoms Significant improvement in urinary symptoms with combination tamsulosin and daily tadalafil He is convinced cyst because he is taking the tamsulosin at night Lower urinary tract symptoms Nocturia with mild nocturia Current therapy tamsulosin daily tadalafil PSA 02/02 3.2, 01/04 -2.1. 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 Cognitive needs: No Hearing needs: No Vision needs: No Review of Systems Const Denies chills and Denies fever(s) Card Reports no additional complaints and Denies syncope Resp Denies cough GI Denies abdominal pain and Denies heartburn Reports as per HPI and Denies change in libido Neuro Denies syncope Psych Denies change in libido Endo Denies change in libido Physical Exam Const General: cooperative, healthy appearing, comfortable and no acute distress Orientation/consciousness: patient oriented x3 HEENT Face and sinus: Yes normal facial exam Mouth: moist mucous membranes Neck Neck: Yes normal visual inspection, Yes full ROM and Yes trachea midline Chest Chest palpation & inspection: normal inspection of the chest Resp Effort & Inspection: normal respiratory effort, able to speak in complete sentences and no respiratory distress GI Inspection: Yes normal to inspection Back/Spine/Pelvis Cervical Spine: normal cervical lordosis Thoracic/Lumbar Spine: thoracic and lumbar spine normal to inspection Skin General skin exam: no rashes or lesions noted Neuro General: patient oriented x3, gait normal, tone normal and moves all extremities Extrem General: Yes normal to inspection and Yes capillary refill normal Office Procedures Post Void Residual Post Residual Void Post Void Residual (PVR): 152 [id number] Void Residual by ultrasound Assessment & Plan Assessment & Plan (1) Enlarged prostate with lower urinary tract symptoms (LUTS): Code(s): N40.1 - Benign prostatic hyperplasia with lower urinary tract symptoms (2) Elevated PSA: Code(s): R97.20 - Elevated prostate specific antigen [PSA] Plan Twelve month follow-up Orders: Orders AMB Post Void Residual by ultrasound Today R33.9 - Retention of urine, unspecified Prostate Specific Antigen 364 Days N40.1 - Benign prostatic hyperplasia with lower urinary tract symptoms Medications: Refilled tadalafil 5 mg PO DAILY 90 tabs 3RF sexual activity 90 days N40.1 - Benign prostatic hyperplasia with lower urinary tract symptoms tamsulosin 0.4 mg PO BEDTIME 90 caps 3RF 90 days N13.8 - Other obstructive and reflux uropathy, N40.1 - Benign prostatic hyperplasia with lower urinary tract symptoms Patient Instructions: Imaging studies, laboratory and physical exam results were discussed and reviewed in detail. No major barriers to patient understanding were identified. An opportunity to ask questions regarding the treatment plan was provided. All questions were answered. The patient expressed understanding and agreement with the above treatment plan. The patient is aware they should contact our office by phone for worsening of their current condition or the appearance of new urologic symptoms. Compliance is encouraged with any medications and followup testing that is ordered. It is a privilege to participate in the urologic care of your patient. If you have any questions or concerns regarding treatment for the above conditions, or other urologic issues, please do not hesitate to contact me. The office telephone contact is [phone]. This note is constructed using voice recognition software. While every effort has been made to ensure accuracy property technician errors may have been included. Yours sincerely, Dr Ovi Bran MD, [facility] - Urology Providers of Expert, Compassionate Care for the Genitourinary System Coding Level of Care Code Est Pt Level 3 (98416) Diagnoses Enlarged prostate with lower urinary tract symptoms (LUTS) N40.1 Elevated PSA R97.20 CPT Codes Post Residual Void - PVR CPT Code: 04589-Ytyc Void Residual by ultrasound ([id number])
== END 2023-07-16 15:31 | disposition home or self-care (01) ==
PROVIDERS: PCP Nurse Practitioner Family; Visit Provider Urology
DX: N40.1 Benign prostatic hyperplasia with lower urinary tract symptoms (principal); R97.20 Elevated prostate specific antigen [PSA]
CPT/HCPCS: 99213

== ENCOUNTER → 2023-07-16 14:51 | Outpatient (BNVA) | payer OTHER, SELFPAY | PROVIDERS: PCP Nurse Practitioner Family; Visit Provider Urology | DX: N40.1 Benign prostatic hyperplasia with lower urinary tract symptoms (principal); R35.1 Nocturia; R97.20 Elevated prostate specific antigen [PSA]; R33.8 Other retention of urine; N13.8 Other obstructive and reflux uropathy | CPT/HCPCS: 51798; 99212 ==

== ENCOUNTER 2023-07-28 10:28 | Outpatient (REF) | payer OTHER, SELFPAY ==
[2023-07-28 12:07] LABS: Cholesterol 213 mg/dL (<200); HDL Cholesterol 51 mg/dL (>40); LDL Cholesterol Calculated 140 mg/dL (<100); Triglycerides 111 mg/dL (<150)
[2023-07-28 14:24] LABS: Creatinine Urine 127.56 mg/dL; Microalbum/Creatinine Ratio Ur 7.8 ug/mg cr (<30)
== END 2023-07-28 10:29 | disposition home or self-care (01) ==
LOC: HO.WFDLDS 10:28
PROVIDERS: Visit Provider Nurse Practitioner Family
DX: E11.9 Type 2 diabetes mellitus without complications (principal)
CPT/HCPCS: 36415; 80061; 82043; 82570

== ENCOUNTER 2023-08-28 12:27 | Outpatient (AMB) | payer OTHER, SELFPAY ==
[2023-08-28 12:33] VITALS: BMI 37.1
--- NOTE | 2023-08-28 12:33 | A.OFFVIS_ITS ---
VS Expanded 08/28/23 12:33 Height 5 ft 10 in Weight 258 lb 9.636 oz BMI 37.1 Intake Visit Reasons: T2DM Allergies No Known Allergies Allergy (Verified 07/16/23 15:09) Nutrition Presentation Details: Pt presents for MNT f/u for T2DM Pt reports doing well, working on diet modification, reducing on saturated fats Getting into a routine, incorporating physical activity BS Monitoring Most Recent Diabetes Results: Microalb/Creat Ratio 7.8 ug/mg cr (<30) 07/28/23 Cholesterol 213 mg/dL (<200) H 07/28/23 HDL Cholesterol 51 mg/dL (>40) 07/28/23 Triglycerides 111 mg/dL (<150) 07/28/23 PFSH Medical History No pertinent past medical history Surgical History Hx of appendectomy Family History Mother Hypertension Diabetes No family history of mental disorder Heart disease Father Heart disease No family history of mental disorder COPD (chronic obstructive pulmonary disease) Social History Household Members: Significant Other Housing: Apartment Alcohol intake: former Patient Tobacco Use Status: Never used Tobacco e-Cigarette/Vaping Use: Currently Using service: Yes Current occupational status: other 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 Cognitive needs: No Hearing needs: No Vision needs: No Assessment & Plan Assessment & Plan (1) Type 2 diabetes mellitus: Code(s): E11.9 - Type 2 diabetes mellitus without complications Category: Medical Plan: Wt: 116 Kg ( June 2023 ) Est kcal needs as per MSJ: 2800 (40% carb, 30% protein/fat) Est fluid needs as per 25-30 ml/d: 3500 Est prot per day as per 1 g/kg bw: 115 Recommend fiber intake : 8-10 g per day and gradually increase to 25-28 g per day for women and 35-38 g for men or as tolerated Recommend sodium intake per day : less than 2000 mg Educated patient on: ( R = reviewed V = verbalizes understanding N/R = needs review N/A = not applicable * Food sources of carbohydrate, adequate serving sizes and its role in various health conditions: R * Differences between complex carbohydrates a simple carbohydrates, role of fiber in diet: R * Lean protein sources of foods: R * Differences between types of fats and role in diet (mono on saturated fat fatty acids, saturated fatty acids, trans fats): R * Food sources of sodium in salt and healthy modifications for heart health in kidney health: NR * Vitamins and minerals: N/R * Healthy plate method concept: R * Physical activity: Benefits a precaution: R * Hypoglycemia protocol (rule of 15): N/R * Dietary prevention of Hyperglycemia: R Patient Instructions: Have a fruit in place of pastries and similar foods , aim at consuming 2 fruits/day Continue working on increasing physical activity, goal 30 minutes walk 3 times wk Coding Level of Care Code Nutr Indiv Subseq (30881) Diagnoses Type 2 diabetes mellitus E11.9 Time Spent (min) 20
== END 2023-08-28 12:58 | disposition home or self-care (01) ==
PROVIDERS: PCP Nurse Practitioner Family; Visit Provider Dietitian, Registered
DX: E11.9 Type 2 diabetes mellitus without complications (principal)

== ENCOUNTER → 2023-08-28 12:27 | Outpatient (BNVA) | payer OTHER, SELFPAY | PROVIDERS: PCP Nurse Practitioner Family; Visit Provider Dietitian, Registered | DX: E11.9 Type 2 diabetes mellitus without complications (principal) | CPT/HCPCS: 97803 ==

== ENCOUNTER 2023-10-13 09:39 | Outpatient (REF) | payer OTHER, SELFPAY ==
[2023-10-13 10:55] LABS: Cholesterol 238 mg/dL (<200); HDL Cholesterol 39 mg/dL (>40); LDL Cholesterol Calculated 173 mg/dL (<100); Triglycerides 132 mg/dL (<150)
== END 2023-10-13 09:40 | disposition home or self-care (01) ==
LOC: HO.WFDLDS 09:39
PROVIDERS: Visit Provider Nurse Practitioner Family
DX: E78.00 Pure hypercholesterolemia, unspecified (principal)
CPT/HCPCS: 36415; 80061

== ENCOUNTER 2023-10-14 11:16 | Outpatient (AMB) | payer OTHER, SELFPAY ==
--- NOTE | 2023-10-14 11:25 | MHC.PC.OV ---
Vital Signs 10/14/23 11:33 Weight 247 lb 4 oz BP 102/70 Blood Pressure Location Lt brachial Position Sitting Pulse 74 Pulse Source Pulse Oximeter Temp 98.1 F Temp Source Temporal Artery Scan Pulse Oximetry (%) 96 Oxygen Delivery Method Room Air Intake Visit Reasons: 3 month follow up diabetes Intake Note: patient here for 3 months follow up. 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 He admits to taking metformin as prescribed without adverse reactions. He notes that he did not take atorvastatin because he learned from the Internet that the medication increases his blood sugar levels. He does not want to take the medication. He has been engaging in physical exercise for the past 1 month, lost 10 lb, and will continue to do so. He will also continue to make healthy dietary changes. 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 Gokul Diaz, Evon Tucker, Duane Wyatt and colleagues, with an educational akilah from [employer]. Review of Systems Const Details: Const Denies chills, Denies fatigue, Denies fever(s), Denies headache(s) and Denies weakness ENT Denies dizziness and Denies headache(s) Card Denies chest pain, Denies lightheadedness, Denies dyspnea and Denies other (Palpitations) Resp Denies cough, Denies dyspnea, Denies wheezing and Denies other ( shortness of breath) GI Denies abdominal pain, Denies melena, Denies hematochezia, Denies change in bowel habits, Denies dyspepsia and Denies nausea Denies hematuria and Denies dysuria Musc Denies abnormal gait, Denies myalgias, Denies arthralgias, Denies numbness and Denies tingling Skin/Breast Denies rash, Denies unusual bruising and Denies wounds Neuro Denies abnormal gait, Denies dizziness, Denies headache(s), Denies memory loss, Denies numbness, Denies Sensory deficit (Neuro), Denies tingling and Denies weakness Psych Denies anxiety, Denies depression, Denies memory loss Endo Denies cold intolerance, Denies fatigue, Denies heat intolerance, Denies polydipsia and Denies polyuria Aller/Immun Denies wheezing Physical exam (Primary Care) Vital Signs: Last Vital Signs Temp 98.1 F 10/14/23 11:33 Pulse 74 10/14/23 11:33 BP 102/70 10/14/23 11:33 Pulse Ox 96 10/14/23 11:33 Oxygen Delivery Method Room Air 10/14/23 11:33 Tobacco/Smoking Status: Tobacco use Status Tobacco use date assessed 07/15/23 10/14/23 11:28 Patient Tobacco Use Status Never used Tobacco 10/14/23 11:28 e-Cigarette/Vaping Use Currently Using 10/14/23 11:28 Const Other: General: no acute distress and well developed Nutritional Appearance: well nourished Orientation/consciousness: patient oriented x3 HENMT Head: Yes normocephalic and Yes atraumatic Eyes General: appearance normal, both eyes and all related structures Pupils: Equal, round and reactive pupils present EOM: EOMs intact bilaterally Resp Effort & Inspection: normal respiratory effort Auscultation: clear to auscultation bilaterally Cardio Rate: regular rate Rhythm: regular rhythm Heart sounds: S1 normal heart sound present, S2 normal heart sound present, no gallops, no murmurs and no rubs GI Palpation (GI): No Abdominal aortic bruit present, Soft to palpation, nontender, No hepatosplenomegaly present and No Rebound tenderness present Auscultation: normal bowel sounds General: Yes no CVA tenderness Back/Spine/Pelvis Back: no CVA tenderness Cervical Spine: cervical ROM normal and No Cervical spine tenderness Thoracic/Lumbar Spine: thoraco-lumbar ROM normal, No pain with thoraco-lumbar ROM, No thoracic spinal tenderness and No lumbar spinal tenderness Extrem General: Yes normal to inspection, No edema and No calf tenderness Skin General: warm and dry. Normal skin color. Normal skin turgor Lesions: no lesions Rashes: no rashes Trauma: no lacerations or abrasions Wounds: no wounds Nails: normal Neuro General: patient oriented x3, gait normal and no focal neuro deficit Cranial nerves: Yes Equal, round and reactive pupils present Cognition (Neuro): normal cognition Gait exam (Neuro): Normal gait present Sensory Exam: No Sensory deficit (Neuro) Psych Appearance: grossly normal Affect: normal affect Attitude: cooperative Thought process: Normal thought process present Results AMB Hemoglobin A1c AMB Hemoglobin A1c 6.1 % Last Edit by CHERYL Hinson on 10/14/23 11:51 Assessment and Plan Assessment & Plan (1) Type 2 diabetes mellitus: Code(s): E11.9 - Type 2 diabetes mellitus without complications Plan: A1c today is 6.1%, within goal of less than 7.0%. Previous A1c was 7.0% Continue current treatment regimen ADA diet and routine exercise encouraged Follow up in 3 months or sooner with symptoms or concerns Verbalized understanding and agreed with the treatment plan (2) Hypercholesterolemia: Code(s): E78.00 - Pure hypercholesterolemia, unspecified Plan: Recent total cholesterol and LDL levels are elevated, 238 and 173 respectively; HDL level is slightly low, 39 He did not take atorvastatin because he learned from the Internet that the medication increases his blood sugar levels He will continue the exercise and make healthy dietary changes Advised to limit foods high in saturated fat and avoid foods high in trans fat Will recheck lipid levels. Advised to fast for 10-12 hours, may drink water only, and get blood work done a few days before his next visit Follow-up in 3 months Verbalized understanding and agreed with the treatment plan Orders: Orders AMB Hemoglobin A1c Today E11.9 - Type 2 diabetes mellitus without complications Lipid Panel 3 Months E78.00 - Pure hypercholesterolemia, unspecified Coding Level of Care Code Est Pt Level 4 (01161) Complex EM visit Add On G2211 Diagnoses Type 2 diabetes mellitus E11.9 Hypercholesterolemia E78.00
[2023-10-14 11:33] VITALS: BP 102/70; PULSE 74; TEMP 36.7; O2SAT 96
== END 2023-10-14 12:03 | disposition home or self-care (01) ==
PROVIDERS: PCP Nurse Practitioner Family; Visit Provider Nurse Practitioner Family
DX: E11.9 Type 2 diabetes mellitus without complications (principal); E78.00 Pure hypercholesterolemia, unspecified
CPT/HCPCS: 83036; 99214; G2211

== ENCOUNTER 2023-12-01 13:32 | Outpatient (AMB) | payer OTHER, SELFPAY ==
[2023-12-01 13:41] VITALS: BMI 35.6
--- NOTE | 2023-12-01 13:41 | A.OFFVIS_ITS ---
VS Expanded 12/01/23 13:41 Height 5 ft 10 in Weight 248 lb 3.848 oz BMI 35.6 Intake Visit Reasons: T2DM/CONFIRMED Allergies No Known Allergies Allergy (Verified 10/14/23 11:48) Nutrition Presentation Details: Pt presents for MNT f/u for T2DM Pt reports working on diet modifications, reducing sugars, A1c improved form 7% to 6.1 % in 10/2023 . Today will reviewed diet modification to improve cholesterol BS Monitoring Most Recent Diabetes Results: Microalb/Creat Ratio 7.8 ug/mg cr (<30) 07/28/23 Cholesterol 238 mg/dL (<200) H 10/13/23 HDL Cholesterol 39 mg/dL (>40) L 10/13/23 Triglycerides 132 mg/dL (<150) 10/13/23 PFS Medical History No pertinent past medical history Surgical History Hx of appendectomy Family History Mother Hypertension Diabetes No family history of mental disorder Heart disease Father Heart disease No family history of mental disorder COPD (chronic obstructive pulmonary disease) Social History Household Members: Significant Other Housing: Apartment Alcohol intake: former Patient Tobacco Use Status: Never used Tobacco e-Cigarette/Vaping Use: Currently Using service: Yes Current occupational status: other 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 Cognitive needs: No Hearing needs: No Vision needs: No Assessment & Plan Assessment & Plan (1) Type 2 diabetes mellitus: Code(s): E11.9 - Type 2 diabetes mellitus without complications Category: Medical Plan: Wt: 116 Kg ( June 2023 ), 113 kg (11/2023) Est kcal needs as per MSJ: 2800 (40% carb, 30% protein/fat) Est fluid needs as per 25-30 ml/d: 3500 Est prot per day as per 1 g/kg bw: 115 Recommend fiber intake : 8-10 g per day and gradually increase to 25-28 g per day for women and 35-38 g for men or as tolerated Recommend sodium intake per day : less than 2000 mg Educated patient on: ( R = reviewed V = verbalizes understanding N/R = needs review N/A = not applicable * Food sources of carbohydrate, adequate serving sizes and its role in various health conditions: R * Differences between complex carbohydrates a simple carbohydrates, role of fiber in diet: R * Lean protein sources of foods: R * Differences between types of fats and role in diet (mono on saturated fat fatty acids, saturated fatty acids, trans fats): R * Vitamins and minerals: R * Healthy plate method concept: R * Physical activity: Benefits a precaution: R * Hypoglycemia protocol (rule of 15): N/R * Dietary prevention of Hyperglycemia: R Patient Instructions: Include omega 3 sources of foods - fish twice a week, nuts, seeds continue working on reducing on saturated fats, fried foods in general keep physically active goal 150 min /wk or as tolerated Coding Level of Care Code Nutr Indiv Subseq (95262) Diagnoses Type 2 diabetes mellitus E11.9 Time Spent (min) 25
== END 2023-12-01 14:08 | disposition home or self-care (01) ==
PROVIDERS: PCP Nurse Practitioner Family; Visit Provider Dietitian, Registered
DX: E11.9 Type 2 diabetes mellitus without complications (principal)

== ENCOUNTER → 2023-12-01 13:32 | Outpatient (BNVA) | payer OTHER, SELFPAY | PROVIDERS: PCP Nurse Practitioner Family; Visit Provider Dietitian, Registered | DX: E11.9 Type 2 diabetes mellitus without complications (principal); Z71.3 Dietary counseling and surveillance | CPT/HCPCS: 97803 ==

== ENCOUNTER 2024-01-15 11:01 | Outpatient (AMB) | payer OTHER, SELFPAY ==
--- NOTE | 2024-01-15 11:03 | A.OFFPC_ITS ---
Vital Signs 01/15/24 11:15 Height 5 ft 10 in Weight 244 lb 8 oz BMI 35.1 BP 100/68 Blood Pressure Location Lt brachial Position Sitting Respiration 16 Pulse 94 Pulse Source Pulse Oximeter Temp 99.4 F Temp Source Oral Pulse Oximetry (%) 95 Oxygen Delivery Method Room Air Intake Visit Reasons: 3 m dm high colestorol Intake Note: patient here for follow up on DM and high cholesterol. 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 He requests to be on a once daily dose of metformin He took himself off statin He admits to making lifestyle changes, including diet and exercise He offers no complaints and denies acute symptoms at this time He did not get lipid panel blood work done as planned before this visit [facility] Medical History No pertinent past medical history Surgical History Hx of appendectomy Family History Mother Hypertension Diabetes No family history of mental disorder Heart disease Father Heart disease No family history of mental disorder COPD (chronic obstructive pulmonary disease) Social History Household Members: Significant Other Housing: Apartment Alcohol intake: former Patient Tobacco Use Status: Never used Tobacco e-Cigarette/Vaping Use: Currently Using service: Yes Current occupational status: other 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 Gokul Diaz, Evon Tucker, Duane Wyatt and colleagues, with an educational akilah from [email or web address]. Review of Systems Const Details: Const Denies chills, Denies fatigue, Denies fever(s), Denies headache(s) and Denies weakness ENT Denies dizziness and Denies headache(s) Card Denies chest pain, Denies lightheadedness, Denies dyspnea and Denies other (Palpitations) Resp Denies cough, Denies dyspnea, Denies wheezing and Denies other ( shortness of breath) GI Denies abdominal pain, Denies melena, Denies hematochezia, Denies change in bowel habits, Denies dyspepsia and Denies nausea Denies hematuria and Denies dysuria Musc Denies abnormal gait, Denies myalgias, Denies arthralgias, Denies numbness and Denies tingling Skin/Breast Denies rash, Denies unusual bruising and Denies wounds Neuro Denies abnormal gait, Denies dizziness, Denies headache(s), Denies memory loss, Denies numbness, Denies Sensory deficit (Neuro), Denies tingling and Denies weakness Psych Denies anxiety, Denies depression, Denies memory loss Endo Denies cold intolerance, Denies fatigue, Denies heat intolerance, Denies polydipsia and Denies polyuria Aller/Immun Denies wheezing Physical exam (Primary Care) Tobacco/Smoking Status: Tobacco use Status Tobacco use date assessed 07/15/23 01/15/24 11:05 Patient Tobacco Use Status Never used Tobacco 01/15/24 11:05 e-Cigarette/Vaping Use Currently Using 01/15/24 11:05 Const Other: General: no acute distress and well developed Nutritional Appearance: well nourished Orientation/consciousness: patient oriented x3 HENMT Head: Yes normocephalic and Yes atraumatic Eyes General: appearance normal, both eyes and all related structures Pupils: Equal, round and reactive pupils present EOM: EOMs intact bilaterally Resp Effort & Inspection: normal respiratory effort Auscultation: clear to auscultation bilaterally Cardio Rate: regular rate Rhythm: regular rhythm Heart sounds: S1 normal heart sound present, S2 normal heart sound present, no gallops, no murmurs and no rubs GI Palpation (GI): No Abdominal aortic bruit present, Soft to palpation, nontender, No hepatosplenomegaly present and No Rebound tenderness present Auscultation: normal bowel sounds General: Yes no CVA tenderness Back/Spine/Pelvis Back: no CVA tenderness Extrem General: Yes normal to inspection, No edema and No calf tenderness Skin General: warm and dry. Normal skin color. Normal skin turgor Neuro General: patient oriented x3, gait normal and no focal neuro deficit Cranial nerves: Yes Equal, round and reactive pupils present Cognition (Neuro): normal cognition Gait exam (Neuro): Normal gait present Sensory Exam: No Sensory deficit (Neuro) Psych Appearance: grossly normal Affect: normal affect Attitude: cooperative Thought process: Normal thought process present Coding Level of Care Code Est Pt Level 4 (00960) Diagnoses Type 2 diabetes mellitus E11.9 Hypercholesterolemia E78.00 Assessment & Plan Assessment & Plan (1) Type 2 diabetes mellitus: Code(s): E11.9 - Type 2 diabetes mellitus without complications Category: Medical Plan: A1c today 6.0%, within goal of less than 7.0%. Previous A1c was 6.1% He forgets to take metformin twice daily and wants to be on a once daily dose instead Will decrease metformin to 500 mg daily due to controlled diabetes on 500 mg dose for the past month and a half ADA diet and routine exercise encouraged Will recheck A1C in 3 months Follow-up in 1 month for an extended physical exam or sooner with symptoms or concerns Verbalized understanding and agreed with the plan (2) Hypercholesterolemia: Code(s): E78.00 - Pure hypercholesterolemia, unspecified Category: Medical Plan: He forgot to get lipid panel blood work done before this visit and plans to do so before his next visit Advised to limit foods high in saturated fat and avoid foods high in trans fat Routine exercise encouraged Encouraged to fast for 10-12 hours, may drink water only, and get lipid panel blood work done before his next visit Verbalized understanding and agreed with the plan Orders: Orders AMB Hemoglobin A1c Today Z13.9 - Encounter for screening, unspecified Medications: Changed From metformin 500 mg PO BID 30 days 60 tabs 3RF To metformin 500 mg PO .QD 30 days 30 tabs 3RF
[2024-01-15 11:15] VITALS: BP 100/68; PULSE 94; RESP 16; TEMP 37.4; O2SAT 95; BMI 35.1
== END 2024-01-15 11:36 | disposition home or self-care (01) ==
PROVIDERS: PCP Nurse Practitioner Family; Visit Provider Nurse Practitioner Family
DX: E11.9 Type 2 diabetes mellitus without complications (principal); E78.00 Pure hypercholesterolemia, unspecified; Z13.9 Encounter for screening, unspecified

== ENCOUNTER → 2024-01-15 11:01 | Outpatient (BNVA) | payer OTHER, SELFPAY | PROVIDERS: PCP Nurse Practitioner Family; Visit Provider Nurse Practitioner Family | DX: E11.9 Type 2 diabetes mellitus without complications (principal); Z79.84 Long term (current) use of oral hypoglycemic drugs | CPT/HCPCS: 83036; 99212 ==

== ENCOUNTER 2024-02-16 10:12 | Outpatient (REF) | payer OTHER, SELFPAY ==
[2024-02-16 13:12] LABS: Cholesterol 209 mg/dL (<200); HDL Cholesterol 43 mg/dL (>40); LDL Cholesterol Calculated 143 mg/dL (<100); Triglycerides 115 mg/dL (<150)
== END 2024-02-16 10:13 | disposition home or self-care (01) ==
LOC: HO.WFDLDS 10:12
PROVIDERS: Visit Provider Nurse Practitioner Family
DX: E78.00 Pure hypercholesterolemia, unspecified (principal)
CPT/HCPCS: 36415; 80061

== ENCOUNTER → 2024-02-17 10:21 | Outpatient (BNVA) | payer OTHER, SELFPAY | PROVIDERS: PCP Nurse Practitioner Family; Visit Provider Nurse Practitioner Family | DX: Z53.21 Procedure and treatment not carried out due to patient leaving prior to being seen by health care provider (principal) | CPT/HCPCS: 96127 ==

== ENCOUNTER 2024-02-18 10:31 | Outpatient (AMB) | payer OTHER, SELFPAY ==
--- NOTE | 2024-02-18 11:22 | AM.OFFVISNUR ---
Intake Visit Reasons: ear lavage (let rashard know when here) Movers Required: No Allergies No Known Allergies Allergy (Verified 02/17/24 11:01) Nursing Note Patient came to office for irrigation of left and right ears. Patient denied using ear drops for a few days ahead of the appointment, stated that the other day he was using a cotton swab to clean his ears at home and he felt like he pushed a lot of wax in further. Patient reported that his hearing seemed dampened since this incident. Used otoscope to examine inside of left and right ears and observed yellow wax in both. Used 50/50 mix of warm water and hydrogen peroxide to irrigate inside of right ear and then left ear. From both ears came yellow wax but after several minutes of irrigation there was still some visible. Recommended to patient that he use ear drops for about five days to soften the remaining wax and make an appointment to return to have it removed. Patient agreed with this plan and scheduled an appointment to return five days from today. Patient stated he could tell some improvement in his hearing.
== END 2024-02-18 10:57 | disposition home or self-care (01) ==
LOC: HO.HMCFM 10:32
PROVIDERS: PCP Nurse Practitioner Family; Visit Provider Nurse Practitioner Family
DX: H61.23 Impacted cerumen, bilateral (principal)

== ENCOUNTER → 2024-02-18 10:31 | Outpatient (BNVA) | payer OTHER, SELFPAY | PROVIDERS: PCP Nurse Practitioner Family; Visit Provider Nurse Practitioner Family | DX: H61.23 Impacted cerumen, bilateral (principal) | CPT/HCPCS: 69209; 99211 ==

== ENCOUNTER 2024-03-03 09:57 | Outpatient (AMB) | payer OTHER, SELFPAY ==
[2024-03-03 10:07] VITALS: BMI 34.9
--- NOTE | 2024-03-03 10:07 | A.OFFVIS_ITS ---
VS Expanded 03/03/24 10:07 Height 5 ft 10 in Weight 242 lb 15.19 oz BMI 34.9 Intake Visit Reasons: T2DM Allergies No Known Allergies Allergy (Verified 02/17/24 11:01) Nutrition Presentation Details: Pt presents for MNT f/u T2DM Pt reports working on diet modifications /choosing plant based, fiber rich food majority of the time Feeling well. A1c at 6.0% on 02/04 BS Monitoring Most Recent Diabetes Results: Cholesterol 209 mg/dL (<200) H 02/16/24 HDL Cholesterol 43 mg/dL (>40) 02/16/24 Triglycerides 115 mg/dL (<150) 02/16/24 PFSH Medical History No pertinent past medical history Surgical History Hx of appendectomy Family History Mother Hypertension Diabetes No family history of mental disorder Heart disease Father Heart disease No family history of mental disorder COPD (chronic obstructive pulmonary disease) Social History Household Members: Significant Other Housing: Apartment Alcohol intake: former Patient Tobacco Use Status: Never used Tobacco e-Cigarette/Vaping Use: Currently Using service: Yes Current occupational status: other 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 Cognitive needs: No Hearing needs: No Vision needs: No Assessment & Plan Assessment & Plan (1) Type 2 diabetes mellitus: Code(s): E11.9 - Type 2 diabetes mellitus without complications Category: Medical Plan: Wt: 116 Kg ( June 2023 ), 113 kg (11/2023), 110.5 (03/07) Est kcal needs as per MSJ: 2800 (40% carb, 30% protein/fat) Est fluid needs as per 25-30 ml/d: 3500 Est prot per day as per 1 g/kg bw: 115 Recommend fiber intake : 8-10 g per day and gradually increase to 25-28 g per day for women and 35-38 g for men or as tolerated Recommend sodium intake per day : less than 2000 mg Educated patient on: ( R = reviewed V = verbalizes understanding N/R = needs review N/A = not applicable * Food sources of carbohydrate, adequate serving sizes and its role in various health conditions: R * Differences between complex carbohydrates a simple carbohydrates, role of fiber in diet: R * Lean protein sources of foods: R * Differences between types of fats and role in diet (mono on saturated fat fatty acids, saturated fatty acids, trans fats): R * Vitamins and minerals: R * Healthy plate method concept: R * Physical activity: Benefits a precaution: R , V * Hypoglycemia protocol (rule of 15): N/R * Dietary prevention of Hyperglycemia: R Patient Instructions: Engage in physical activity twice a week (45 akhiok 1 hr) walking as example Coding Level of Care Code Nutr Indiv Subseq (82603) Diagnoses Type 2 diabetes mellitus E11.9 Time Spent (min) 20
== END 2024-03-03 13:57 | disposition home or self-care (01) ==
PROVIDERS: PCP Nurse Practitioner Family; Visit Provider Dietitian, Registered
DX: E11.9 Type 2 diabetes mellitus without complications (principal)

== ENCOUNTER → 2024-03-03 09:57 | Outpatient (BNVA) | payer OTHER, SELFPAY | PROVIDERS: PCP Nurse Practitioner Family; Visit Provider Dietitian, Registered | DX: E11.9 Type 2 diabetes mellitus without complications (principal); Z71.3 Dietary counseling and surveillance | CPT/HCPCS: 97803 ==

== ENCOUNTER 2024-07-12 11:47 | Outpatient (REF) | payer OTHER, SELFPAY ==
--- OUTSIDE RECORDS SUMMARY | 2024-07-12 13:34 | XMS_ITS | Patient Health Record ---
Author Organization [facility] Address [address] [place] [address] Care Team Providers Care Ict Quality Assurance Engineer Name Role Phone KANDICE LUCASMARILUTINA Primary Care Provider [phone] Allergies No Known Allergies Reason For Referral No Information Immunizations Vaccine Route Administration Date Status Comme nts Influenza, high dose seasonal Unknown 07/28/2020 Refuse d Problems Problem Type SNOMED Code ICD Code Onset Dates Problem Status W/U Status Risk Notes Problem 349329502 Dyslipidemia (E78.5) Active confirmed Problem [id number] Obesity (BMI 30.0-34.9) (E66.9) Active confirmed Plan Of Treatment Pending Test Test Name Order Date Urine Culture and Sensitivity 09/04/2020 Insurance Providers Payer Name Payer Address Payer Phone Subscriber Number Group Number Insured Name Patient Relationship to Insured Coverage Start Date Coverage End Date [facility] [address] [address] [place] [address] [id number] Bashir Sextonif Self - patient is the insured Medical (General) History Medical History History ICD Code None Surgical History Surgery Date(Month/Year) appendix removed 2007 pilonidal cyst , had colonoscopy 2012 vocal cord nodule removal 2011
--- OUTSIDE RECORDS SUMMARY | 2024-07-12 13:34 | XMS_ITS | Continuity of Care Document ---
Author Organization [facility] Address [address] [place] [address] Phone Care Team Providers Care Drafter Name Role Phone Gio MILLER, Morgan Unavailable Unavailable Allergies, Adverse Reactions, Alerts Substance Reaction Status Criticality No Known Allergies Active No Inform ation Medications Medication Instructions Dosage Effective Dates (start - stop) Status Comments Flomax Oral Capsule 0.4 MG take one capsule by mouth every day half an hour following the same meal each day - Active Cialis 5 mg tablet take 1 tablet by oral route every day 5 MG - Active Flomax 0.4 mg capsule take 1 capsule by oral route every day 1/2 hour following the same meal each day 0.4 MG - No Longer Active Problems Condition Type Effective Dates (start - stop) Clini kamala Status Comments No Known Problems Procedures Procedure Date UA, Clinitek W/O Micro OFFICE/OUTPATIENT VISIT, EST UA, Clinitek W/O Micro PVR, Post Void Residual OFFICE/OUTPATIENT VISIT, NEW Advance Directives Directive Yes / No Effective Date File Name No Information Encounters Encounter Description Practice Location Reason(s) For Visit Diagnoses Date Provider Providers Copied on Encounter [facility], [address], [place], [place], [id number], tel:[phone] [facility] No Information 2 Gio Mora. [address], [address], [place], [place], [id number], [place]. tel:[phone] [facility], [address] [place] [address], [id number], [place] tel:[phone] [facility] No Information 2 Mejia Hinton. [address], [address], [place], [place], [id number], [place]. tel:[phone] [facility], [address] [place] [address], [id number], [place] tel:[phone] [facility] No Information 2 Mejia Hinton. [facility] [address] [facility] [address], [address], [place], [place], [id number], [place]. tel:[phone] [facility], [address] [place] [address], [id number], [place] tel:[phone] [facility] No Information 2 Gio Mora. [address], [address], [place], [place], [id number], [place]. tel:[phone] OFFICE/OUTPAT IENT VISIT, [facility], [address] [place] [address], [id number], [place] tel:[phone] [facility] BPH (chief complaint)Er ectile dysfunction (chief complaint) BPH w/ lower urinary tract symptomOther male erectile dysfunction 1 Mejia Hinton. [facility] [facility] [address], [address], [place], [place], [id number], [place]. tel:[phone] Referring Provider: Doyle Fernández MD, [address], [place], [address]. tel:[phone] OFFICE/OUTPAT IENT VISIT, NEW [facility], [address], [place], [place], [id number], [place] tel:[phone] [facility] Kash Ingram BPH (chief complaint) BPH w/ lower urinary tract symptom Mejia Hinton. [address], [address], [place], [place], [id number], [place]. tel:[phone] Referring Provider: None None. Family History Family Member Type Diagnosis Age At Onset Mother Problem (finding) Hypertension Mother Problem (finding) Diabetes mellitus Father Problem (finding) Hypertension Payers Payer name Insurance type Covered libertarian ID Jatin jean(s) Partida Harimata CI [id number] Social History Type Description Quantity Date Captured Comments Sex Male Smoking Status No Information Chief Complaint And Reason For Visit No Information Reason For Referral Reason For Referral No Information History Of Present Illness Encounter Date Complaint History Of Prese nt Illness BPH Reviewed today w as a PSA taken on 10/04/2020 with findings of 1.6 ng/mL. Digital Rectal Exam taken on 10/04/2020 with findings of 2+ enlarged (30-40 grams). Associated symptoms include urgency. Pertinent negatives include chills, fever, pressure, slow stream and splitting stream. Additional information: slight help with ciaalis. Erectile dysfunction The patient states he does have difficultly attaining an erection and has difficulty maintaining an erection. Pertinent history does not include diabetes or neurologic disease. BPH Onset was gradua l. Severity level is mild-moderate. The problem is worse. AUA symptom score was 6 on 10/04/2020. Associated symptoms include urgency and urinary frequency. Pertinent negatives include chills, fever, incomplete emptying, intermittent stream, pelvic pressure, pressure and slow stream. Additional information: Voiding sx's worse with sitting. Functional Status Date Functional Assessmen t No Information Instructions Date Instruction Additional Infor mation better on cialis daily Related t o Other male erectile dysfunction pt better on cialis but still bothered so prescirbe flomax, pvr ok, psa nd jarrell within nromal limits Related to BPH w/ lower urinary tract symptom Assessments Type Assessment Date No Information Patient Care Teams Name Effective Dates (start - stop) Status Members No Information
[2024-07-12 14:59] LABS: MANUAL DIFF FLAG NO
[2024-07-12 15:08] LABS: Basophils Absolute Auto 0.1 X10*3/uL (0.0-0.2); Basophils Percent Auto 0.7 % (0-2); Eosinophils Absolute Auto 0.1 X10*3/uL (0.0-0.4); Eosinophils Percent Auto 1.1 % (0-4); Hematocrit 44.8 % (42.0-52.0); Imm Gran Abs Auto 0.05 X10*3/uL (0.00-0.03); Imm Gran Pct Auto 0.7 % (0.0-0.4); Lymphocytes Absolute Auto 2.4 X10*3/uL (1.2-4.9); Lymphocytes Percent Auto 33.5 % (20-40); Mean Corpuscular HGB Conc 33.5 g/dl (31.0-36.0); Mean Corpuscular Hemoglobin 29.2 pg (27.0-33.0); Mean Corpuscular Volume 87.3 fL (80.0-98.0); Mean Platelet Volume 9.1 fL (9.4-12.4); Monocytes Absolute Auto 0.4 X10*3/uL (0.1-1.2); Monocytes Percent Auto 5.7 % (2-11); Neutrophils Absolute Auto 4.2 x10*3/uL (2.0-8.3); Neutrophils Percent Auto 58.3 % (45-73); Platelet Count 244 X10*3/uL (160-400); Red Blood Count 5.13 X10*6/uL (4.60-5.80); White Blood Count 7.2 X10*3/uL (4.8-10.8)
[2024-07-12 15:12] LABS: Appearance Urine Clear; Color Urine Yellow; Glucose Urine UA Negative (Negative); Leukocyte Esterase Urine Negative (Negative); Nitrite Urine Negative (Negative); PH 6.5 (5.0-9.0); Specific Gravity - Urine 1.015 (1.005-1.025); Urine Blood Negative (Negative); Urine Ketones Negative (Negative); Urine Protein Negative (Neg-Trace)
[2024-07-12 15:49] LABS: Creatinine Urine 102.65 mg/dL; Microalbum/Creatinine Ratio Ur 6.8 ug/mg cr (<30)
[2024-07-12 16:06] LABS: TSH reflex Free T4 0.84 uIU/mL (0.32-4.0)
[2024-07-12 16:07] LABS: Prostate Specific Antigen 1.46 ng/mL (<0.05-4.0)
[2024-07-16 00:39] LABS: PSA, Ultra Sensitive 1.55 ng/mL
== END 2024-07-12 11:48 | disposition home or self-care (01) ==
LOC: HO.WFDLDS 11:47
PROVIDERS: Referring Provider Urology; Visit Provider Nurse Practitioner Family
DX: Z00.00 Encounter for general adult medical examination without abnormal findings (principal); N40.1 Benign prostatic hyperplasia with lower urinary tract symptoms; N13.8 Other obstructive and reflux uropathy
CPT/HCPCS: 36415; 81003; 82043; 82570; 84153; 84443; 85025

== ENCOUNTER 2024-07-15 13:40 | Outpatient (AMB) | payer OTHER, SELFPAY ==
--- NOTE | 2024-07-15 13:40 | A.OFFVIS_ITS ---
Intake Visit Reasons: 1 yr follow up/ PSA Intake Note: Patient presents today for a tele visit follow up on: elevated psa and enlarged prostate Meds- Tadalafil, Tamsulosin Allergies to Antibiotic- No Known Allergies Blood Thinner- None Assembly Riveter Required: No Accompanied by: Self / Same As Patient Allergies No Known Allergies Allergy (Verified 07/15/24 19:05) Medication List - Last Reconciled 07/15/24 by MIKE Smith carbamide peroxide 6.5% (Debrox) 5 drps otic (ears) DAILY 4 days metformin 500 mg PO .QD 30 days tadalafil 5 mg PO DAILY 90 days tamsulosin 0.4 mg PO BEDTIME 90 days HPI Comments Details: Valdemar is a pleasant 49-year-old male patient of Dr. [place]. He is being followed up on today via video telehealth for his history of lower urinary tract symptoms and elevated PSA. When asked he reports to be doing and feeling well. He discusses noting significant improvement in lower urinary tract symptoms on 5 mg of Cialis and Flomax daily. He reports feeling medications are extremely effect betzaida for him when he takes them at HS. He reports to be happy with current voiding parameters on 0.4 mg of Flomax and 5 mg of Cialis daily. Recent PSA results reviewed with the patient today. PSAs are as follows: 02/02 3.2, 12/04 3.4, 07/06 1.5 He currently denies any bothersome urinary issues or concerns. He does continue to report episodes of urinary urgency however describes these episodes as in frequent and manageable. He otherwise denies incontinence, nocturia, hematuria, dysuria, foul smelling urine, changes to urinary stream, flank pain, fever, and or chills. 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 Cognitive needs: No Hearing needs: No Vision needs: No Review of Systems Const All systems reviewed & are unremarkable except as noted in HPI and below Physical Exam Const General: cooperative, healthy appearing, comfortable, no acute distress, well developed, alert and awake Orientation/consciousness: patient oriented x3 Resp Effort & Inspection: normal respiratory effort and able to speak in complete sentences Neuro General: patient oriented x3 Psych Appearance: grossly normal and well kempt Mental Status: mental status grossly normal Speech and movement: Normal speech and movement present and Clear speech present Affect: normal affect Attitude: cooperative Thought process: Normal thought process present Thought content: Normal thought content present Insight: Good insight present (Psych) Judgement: Good judgement present (Psych) Telehealth Telehealth Telehealth Platform: [employer] Location of provider rendering services: practice address Location of patient: address on file Patient Identification confirmed using: Name, : Yes Telehealth method: video Patient verbally consented to treatment: Yes Patient verbally consented to billing insurance company: Yes Patient informed of any privacy concerns related to visit: Yes Minutes spent on Phone/Video with Pt.: 15 Assessment & Plan Assessment & Plan (1) Elevated PSA: Code(s): R97.20 - Elevated prostate specific antigen [PSA] Category: Medical Plan Recent PSA results reviewed with the patient today; as noted above. Continue Flomax and Cialis as prescribed; refills provided He currently denies any bothersome urinary issues or concerns. He reports be happy with current voiding parameters. Will obtain PSA in 1 year. Follow-up in 1 year with PSA and PVR; or sooner with any issues, concerns, and or questions. Orders: Orders Prostate Specific Antigen 1 Year R97.20 - Elevated prostate specific antigen [PSA] Medications: Refilled tadalafil 5 mg PO DAILY 90 tabs 3RF sexual activity 90 days N40.1 - Benign prostatic hyperplasia with lower urinary tract symptoms tamsulosin 0.4 mg PO BEDTIME 90 caps 3RF 90 days N13.8 - Other obstructive and reflux uropathy, N40.1 - Benign prostatic hyperplasia with lower urinary tract symptoms Patient Instructions: The patient had an opportunity to ask questions regarding the treatment plan. All questions were answered. Physical exam, labs, and imaging were discussed and reviewed in detail. As well as risks, benefits, and discussion of treatment choices. No major barriers to understanding were identified. The patient expressed understanding and agreement with the above treatment plan. The patient was made aware they should contact our office by phone for worsening of their current condition, the appearance of new symptoms, or with any questions or concerns. Compliance is encouraged with any medications and follow up testing that is ordered. It is a privilege to be allowed the opportunity to participate in? your urological care.? Again, if you have any questions or concerns If you have any questions or concerns please do not hesitate to contact me. The office is [phone]. This note is constructed using voice recognition software. While every effort has been made to ensure accuracy laundromat worker errors may have been included. Yours sincerely, MIKE Smith Coding Level of Care Code Tele Est Pt Level 3 (52350) Diagnoses Elevated PSA R97.20
--- OUTSIDE RECORDS SUMMARY | 2024-07-15 14:59 | XMS_ITS | Patient Health Record ---
Author Organization [facility] Address [address] [place] [address] Care Team Providers Care Electron Gun Inspector Name Role Phone KANDICE LUCASMARILUTINA Primary Care Provider [phone] Allergies No Known Allergies Reason For Referral No Information Immunizations Vaccine Route Administration Date Status Comme nts Influenza, high dose seasonal Unknown 07/28/2020 Refuse d Problems Problem Type SNOMED Code ICD Code Onset Dates Problem Status W/U Status Risk Notes Problem [id number] Dyslipidemia (E78.5) Active confirmed Problem [id number] Obesity (BMI 30.0-34.9) (E66.9) Active confirmed Plan Of Treatment Pending Test Test Name Order Date Urine Culture and Sensitivity 09/04/2020 Insurance Providers Payer Name Payer Address Payer Phone Subscriber Number Group Number Insured Name Patient Relationship to Insured Coverage Start Date Coverage End Date [facility] [address] [address] [place] [address] [phone] [id number] DarshanBashir fieldsif Self - patient is the insured Medical (General) History Medical History History ICD Code None Surgical History Surgery Date(Month/Year) appendix removed 2007 pilonidal cyst , had colonoscopy 2012 vocal cord nodule removal 2011
--- OUTSIDE RECORDS SUMMARY | 2024-07-15 14:59 | XMS_ITS | Continuity of Care Document ---
Author Organization [facility] Address [address] [place] [address] Phone Care Team Providers Care Program Medical Director Name Role Phone Gio MILLER, Morgan Unavailable [...] Provider Providers Copied on Encounter [facility], [address], [place], [place], [id number], tel:[phone] [facility] No Information 2 Gio Mora. [address], [place], [place], [id number], [place]. tel:[phone] [facility], [address] [place] [address], [id number], [place] tel:[phone] [facility] No Information 2 Mejia Hinton. [address], [address], [place], [place], [id number], [place]. tel:[phone] [facility], [address] [place] [address], [id number], [place] tel:[phone] [facility] No Information 2 Mejia Hinton. [facility], [address], [place], [place], [id number], [place]. tel:[phone] [facility], [address] [place] [address], [id number], [place] tel:[phone] [facility] No Information 2 Gio Mora. [address], [place], [place], [id number], [place]. tel:[phone] OFFICE/OUTPAT IENT VISIT, [facility], [address] [place] [address], [id number], [place] tel:[phone] [facility] BPH (chief complaint)Er ectile dysfunction (chief complaint) BPH w/ lower urinary tract symptomOther male erectile dysfunction 1 Mejia Hinton. [facility] [address], [address], [place], [place], [id number], [place]. tel:[phone] Referring Provider: Doyle Fernández MD, [address], [place], [address]. tel:[phone] OFFICE/OUTPAT IENT VISIT, NEW [facility], [address], [place], [place], [id number], [place] tel:[phone] [facility] [place] BPH (chief complaint) BPH w/ lower urinary tract symptom Mejia Hinton. [address], [address], [place], [place], [id number], [place]. tel:[phone] Referring Provider: None None. Family History Family Member Type Diagnosis Age At Onset Mother Problem (finding) Hypertension Mother Problem (finding) Diabetes mellitus Father Problem (finding) Hypertension Payers Payer name Insurance type Covered constitution party ID Jatin jean(s) Partida [employer] CI [id number] Social History Type Description Quantity Date Captured [...]
== END 2024-07-15 14:53 | disposition home or self-care (01) ==
LOC: HO.HUSH 13:40
PROVIDERS: PCP Nurse Practitioner Family; Visit Provider Nurse Practitioner Family
DX: R97.20 Elevated prostate specific antigen [PSA] (principal)
CPT/HCPCS: 99213